=== PATIENT | female | born 1950 | race African-American/Black ===

== ENCOUNTER 2017-04-10 13:28 | Emergency (ER) | payer MEDICAID ==
[~2017-04-10] VITALS: Ht 160 cm; Wt 87.1 kg
[~2017-04-10 13:28] MED LIST: EFAVTAB5
[2017-04-10 13:46] VITALS: BP 171/81
[2017-04-10] MEDS ORDERED: ACETAMINOPHEN 325 MG TAB PO ONE ×2 (13:52→14:00)
[2017-04-10 14:23] LABS: Basophils # (auto) 0 uL; CONDITION Y; Eosinophils # (auto) 0 uL; Eosinophils % (auto) 0.2 % (0.0-7.0); Hematocrit 40.9 % (36.0-46.0); Hemoglobin 14.1 g/dL (12.2-16.2); Lymphocytes # (auto) 1.1 uL; Lymphocytes % (auto) 8.4 % (10.0-50.0); Mean Corpuscular Hgb Conc. 34.3 g/dL (32.0-36.0); Mean Corpuscular Volume 87.5 fL (80.0-100.0); Mean Platelet Volume 8.9 fL (7.4-10.4); Monocytes # (auto) 0.7 uL; Monocytes % (auto) 5.5 % (0.0-12.0); Neutrophils # (auto) 10.7 uL; Neutrophils % (auto) 85.9 % (37.0-80.0); Platelet Count (auto) 316 10^3/uL (140-450); Red Cell Distribution Width 13.4 % (11.6-16.0); White Blood Cell 12.5 10^3/uL (4.4-10.8)
[2017-04-10 14:59] LABS: Albumin 3.8 g/dL (3.4-5.0); Alkaline Phosphatase 85 U/L (45-117); Anion Gap 10 (5-15); Aspartate Aminotransferase 11 U/L (15-37); BUN/Creatinine Ratio 12.7; Bilirubin, Total 0.5 mg/dL (0.2-1.0); Blood Urea Nitrogen 7 mg/dL (7-18); Calcium 9.3 mg/dL (8.5-10.1); Carbon Dioxide 22 mmol/L (21-32); Chloride 105 mmol/L (98-107); GFR African American 143 mL/min; GFR Non-African American 118 mL/min; Glucose 134 mg/dL (74-106); Magnesium 2.2 mg/dL (1.6-2.6); Potassium 3.6 mmol/L (3.5-5.1); Sodium 137 mmol/L (136-145); Total Protein 8.1 g/dL (6.4-8.2)
[2017-04-10 15:39] LABS: Urine Bilirubin Negative (Negative); Urine Color Yellow (Yellow); Urine Glucose Normal (Normal); Urine Ketone Negative (Negative); Urine Nitrite Negative (Negative); Urine RBC 7 /hpf (0 - 4); Urine Squamous Epithelial Cell FEW /hpf (<5); Urine pH 7.5 (5.0-8.0)
[2017-04-10 15:40] LABS: Urine Blood 1+ /uL (Negative)
== END 2017-04-10 21:11 | disposition left against medical advice (07) ==
LOC: ER 13:31
DX: R10.9 Unspecified abdominal pain (principal); R11.2 Nausea with vomiting, unspecified; Z53.21 Procedure and treatment not carried out due to patient leaving prior to being seen by health care provider
CPT/HCPCS: 36415; 80053; 81001; 83690; 83735; 84484; 85025; 93005

== ENCOUNTER 2022-11-19 14:11 | Emergency (ER) | payer MEDICAID, MEDICARE ==
[~2022-11-19] VITALS: Ht 160 cm; Wt 95.0 kg
[2022-11-19 16:04] VITALS: BP 141/105
[2022-11-19] MEDS ORDERED: ACET1CAP14 PO (16:07)
[2022-11-19] MEDS ORDERED: ACETAMINOPHEN 500 MG TAB PO ONE (16:15)
== END 2022-11-19 16:22 | disposition home or self-care (01) ==
LOC: ER 14:11
DX: S46.911A Strain of unspecified muscle, fascia and tendon at shoulder and upper arm level, right arm, initial encounter (principal); F12.10 Cannabis abuse, uncomplicated; J45.909 Unspecified asthma, uncomplicated; Z88.6 Allergy status to analgesic agent; Z90.49 Acquired absence of other specified parts of digestive tract; X50.0XXA Overexertion from strenuous movement or load, initial encounter; Y93.89 Activity, other specified; Y92.89 Other specified places as the place of occurrence of the external cause; Y99.8 Other external cause status
CPT/HCPCS: 73030

== ENCOUNTER → 2023-06-05 | Outpatient (CLI) | payer OTHER ==
[~2023-06-05] MED LIST changes: +ACET1CAP14 PO
[2023-06-05 08:01] LABS: Basophils # (auto) 0 10 ^3/uL (0-0.2); Basophils % (auto) 0.7 % (0.0-2.0); Eosinophils # (auto) 0.2 10 ^3/uL (0-0.8); Eosinophils % (auto) 2.3 % (0.0-7.0); Hematocrit 42.3 % (36.0-46.0); Hemoglobin 14.4 g/dL (12.2-16.2); Lymphocytes # (auto) 1.6 10 ^3/uL (0.4-5.4); Lymphocytes % (auto) 23.2 % (10.0-50.0); Mean Corpuscular Hemoglobin 30.6 pg (28.0-32.0); Mean Corpuscular Volume 90.1 fL (80.0-100.0); Monocytes # (auto) 0.6 10 ^3/uL (0-1.3); Monocytes % (auto) 8.9 % (0.0-12.0); Neutrophils # (auto) 4.4 10 ^3/uL (1.6-8.6); Neutrophils % (auto) 64.9 % (37.0-80.0); Nucleated Red Blood Cells % 0.1 %; Red Blood Cells 4.69 10^6/uL (4.0-5.20); Red Cell Distribution Width 13.8 % (11.8-14.3); White Blood Cell 6.8 10^3/uL (4.4-10.8)
[2023-06-05 08:26] LABS: Albumin 4.5 g/dL (3.2-4.8); Alkaline Phosphatase 82 U/L (46-116); Anion Gap 4.4 (5-15); Aspartate Aminotransferase 8 U/L (13-40); BUN/Creatinine Ratio 11.3 (10.0-20.0); Blood Urea Nitrogen 8 mg/dL (9-23); Calcium 9.6 mg/dL (8.5-10.1); Carbon Dioxide 28.6 mmol/L (20-30); Chloride 107 mmol/L (98-107); Glucose 128 mg/dL (74-106); Potassium 4.1 mmol/L (3.5-5.1); Sodium 140 mmol/L (136-145)
[2023-06-05 08:27] LABS: Bilirubin, Total 0.3 mg/dL (0.2-1.0); Total Protein 7.6 g/dL (5.7-8.2)
[2023-06-05 08:32] LABS: Alanine Aminotransferase < 9 U/L (7-40)
== END | disposition home or self-care (01) ==
LOC: LAB 07:31
PROVIDERS: ATTEND Specialist
DX: B20 Human immunodeficiency virus [HIV] disease (principal); G89.4 Chronic pain syndrome; M66.211 Spontaneous rupture of extensor tendons, right shoulder; H26.223 Cataract secondary to ocular disorders (degenerative) (inflammatory), bilateral
CPT/HCPCS: 36415; 80053; 85025; 86360

== ENCOUNTER → 2023-12-12 | Outpatient (CLI) | payer OTHER ==
[2023-12-12 11:10] LABS: Basophils # (auto) 0.1 10 ^3/uL (0-0.2); Basophils % (auto) 0.8 % (0.0-2.0); Eosinophils # (auto) 0.1 10 ^3/uL (0-0.8); Eosinophils % (auto) 0.8 % (0.0-7.0); Hematocrit 39.6 % (36.0-46.0); Lymphocytes # (auto) 1.3 10 ^3/uL (0.4-5.4); Lymphocytes % (auto) 18.8 % (10.0-50.0); Mean Corpuscular Hemoglobin 29.5 pg (28.0-32.0); Mean Corpuscular Hgb Conc. 32.9 g/dL (32.0-36.0); Mean Corpuscular Volume 89.6 fL (80.0-100.0); Monocytes # (auto) 0.5 10 ^3/uL (0-1.3); Monocytes % (auto) 6.9 % (0.0-12.0); Neutrophils % (auto) 72.7 % (37.0-80.0); Red Blood Cells 4.42 10^6/uL (4.0-5.20); Red Cell Distribution Width 13.1 % (11.8-14.3); White Blood Cell 6.8 10^3/uL (4.4-10.8)
[2023-12-12 12:08] LABS: Alanine Aminotransferase 11 U/L (7-40); Albumin 4.4 g/dL (3.2-4.8); Alkaline Phosphatase 84 U/L (46-116); Anion Gap 3 (5-15); Aspartate Aminotransferase 13 U/L (13-40); BUN/Creatinine Ratio 12.5 (10.0-20.0); Blood Urea Nitrogen 7 mg/dL (9-23); Calcium 9.6 mg/dL (8.5-10.1); Carbon Dioxide 31 mmol/L (20-30); Chloride 107 mmol/L (98-107); Glucose 124 mg/dL (74-106); LDL Cholesterol 128 mg/dL (< 100); Potassium 4.2 mmol/L (3.5-5.1); Sodium 141 mmol/L (136-145); Triglycerides 87 mg/dL (< 150)
[2023-12-12 12:09] LABS: Bilirubin, Total 0.4 mg/dL (0.2-1.0); Cholesterol 182 mg/dL (< 200); HDL Cholesterol 46 mg/dL (40-59); Total Protein 7.4 g/dL (5.7-8.2)
[2023-12-13 05:07] LABS: Baso (Absolute) 0.1 x10E3/uL (0.0-0.2); Basos 1 % (Not Estab.); Eos 1 % (Not Estab.); Hematocrit 40.4 % (34.0-46.6); Hemoglobin 13.2 g/dL (11.1-15.9); Lymphs 18 % (Not Estab.); Lymphs (Absolute) 1.1 x10E3/uL (0.7-3.1); MCH 29.6 pg (26.6-33.0); MCHC 32.7 g/dL (31.5-35.7); MCV 91 fL (79-97); Monocytes 7 % (Not Estab.); Monocytes (Absolute) 0.5 x10E3/uL (0.1-0.9); Neutrophils 73 % (Not Estab.); Neutrophils (Absolute) 4.7 x10E3/uL (1.4-7.0); Platelets 368 x10E3/uL (150-450); RBC 4.46 x10E6/uL (3.77-5.28); WBC 6.4 x10E3/uL (3.4-10.8)
[2023-12-13 12:06] LABS: % CD 4 Pos Lymph 13.8 % (30.8-58.5); % CD 8 Pos Lymph 66.3 % (12.0-35.5); Absolute CD 4 Helper 152 /uL (359-1519); CD4/CD8 Ratio 0.21 (0.92-3.72)
== END | disposition home or self-care (01) ==
LOC: LAB 10:34
PROVIDERS: ATTEND Specialist
DX: I10 Essential (primary) hypertension (principal); B20 Human immunodeficiency virus [HIV] disease; G89.4 Chronic pain syndrome; H53.043 Amblyopia suspect, bilateral; J45.901 Unspecified asthma with (acute) exacerbation
CPT/HCPCS: 36415; 80053; 80061; 85025; 86360

== ENCOUNTER → 2024-03-10 | Outpatient (CLI) | payer OTHER ==
[~2024-03-10] MED LIST changes: +TRAM50TA2 PO
[2024-03-10 08:49] LABS: Basophils # (auto) 0.1 10 ^3/uL (0-0.2); Basophils % (auto) 0.9 % (0.0-2.0); Eosinophils # (auto) 0.1 10 ^3/uL (0-0.8); Eosinophils % (auto) 1.8 % (0.0-7.0); Hematocrit 40.4 % (36.0-46.0); Hemoglobin 13.9 g/dL (12.2-16.2); Lymphocytes # (auto) 1.5 10 ^3/uL (0.4-5.4); Lymphocytes % (auto) 22.2 % (10.0-50.0); Mean Corpuscular Hemoglobin 30.9 pg (28.0-32.0); Mean Corpuscular Hgb Conc. 34.4 g/dL (32.0-36.0); Mean Corpuscular Volume 89.7 fL (80.0-100.0); Monocytes # (auto) 0.6 10 ^3/uL (0-1.3); Monocytes % (auto) 9.4 % (0.0-12.0); Neutrophils # (auto) 4.4 10 ^3/uL (1.6-8.6); Neutrophils % (auto) 65.7 % (37.0-80.0); Red Blood Cells 4.51 10^6/uL (4.0-5.20); Red Cell Distribution Width 14.2 % (11.8-14.3); White Blood Cell 6.8 10^3/uL (4.4-10.8)
[2024-03-10 09:15] LABS: Alanine Aminotransferase 14 U/L (7-40); Alkaline Phosphatase 83 U/L (46-116); Anion Gap 1 (5-15); Aspartate Aminotransferase 9 U/L (13-40); BUN/Creatinine Ratio 14.8 (10.0-20.0); Blood Urea Nitrogen 9 mg/dL (9-23); Calcium 9.5 mg/dL (8.5-10.1); Carbon Dioxide 28 mmol/L (20-30); Chloride 112 mmol/L (98-107); Glucose 128 mg/dL (74-106); Sodium 141 mmol/L (136-145)
[2024-03-10 09:16] LABS: Albumin 4.5 g/dL (3.2-4.8); Bilirubin, Total 0.4 mg/dL (0.2-1.0); Total Protein 7.6 g/dL (5.7-8.2)
[2024-03-11 05:08] LABS: Baso (Absolute) 0.1 x10E3/uL (0.0-0.2); Basos 1 % (Not Estab.); Eos 2 % (Not Estab.); Eos (Absolute) 0.1 x10E3/uL (0.0-0.4); Hematocrit 42.8 % (34.0-46.6); Hemoglobin 13.9 g/dL (11.1-15.9); Lymphs 23 % (Not Estab.); Lymphs (Absolute) 1.5 x10E3/uL (0.7-3.1); MCH 29.4 pg (26.6-33.0); MCHC 32.5 g/dL (31.5-35.7); MCV 91 fL (79-97); Monocytes 10 % (Not Estab.); Monocytes (Absolute) 0.6 x10E3/uL (0.1-0.9); Neutrophils 64 % (Not Estab.); Neutrophils (Absolute) 4.3 x10E3/uL (1.4-7.0); Platelets 303 x10E3/uL (150-450); RBC 4.72 x10E6/uL (3.77-5.28); RDW 13.1 % (11.7-15.4); WBC 6.5 x10E3/uL (3.4-10.8)
[2024-03-11 12:06] LABS: % CD 8 Pos Lymph 62.7 % (12.0-35.5); Absolute CD 4 Helper 180 /uL (359-1519); CD4/CD8 Ratio 0.19 (0.92-3.72)
== END | disposition home or self-care (01) ==
LOC: LAB 08:24
PROVIDERS: ATTEND Specialist
DX: B20 Human immunodeficiency virus [HIV] disease (principal); M54.89 Other dorsalgia
CPT/HCPCS: 36415; 80053; 85025; 86360

== ENCOUNTER → 2024-08-31 | Outpatient (CLI) | payer OTHER ==
[2024-08-31 14:58] LABS: Basophils # (auto) 0.1 10 ^3/uL (0-0.2); Eosinophils # (auto) 0.1 10 ^3/uL (0-0.8); Eosinophils % (auto) 1.9 % (0.0-7.0); Hematocrit 41.4 % (36.0-46.0); Hemoglobin 14.1 g/dL (12.2-16.2); Lymphocytes # (auto) 1.8 10 ^3/uL (0.4-5.4); Lymphocytes % (auto) 24.8 % (10.0-50.0); Mean Corpuscular Hemoglobin 31.1 pg (28.0-32.0); Mean Corpuscular Hgb Conc. 34.2 g/dL (32.0-36.0); Monocytes # (auto) 0.7 10 ^3/uL (0-1.3); Monocytes % (auto) 9.8 % (0.0-12.0); Neutrophils # (auto) 4.5 10 ^3/uL (1.6-8.6); Neutrophils % (auto) 62.5 % (37.0-80.0); Platelet Count (auto) 266 10^3/uL (140-450); Red Blood Cells 4.55 10^6/uL (4.0-5.20); Red Cell Distribution Width 12.9 % (11.8-14.3); White Blood Cell 7.3 10^3/uL (4.4-10.8)
[2024-08-31 15:24] LABS: Alanine Aminotransferase 12 U/L (7-40); Albumin 4.2 g/dL (3.2-4.8); Alkaline Phosphatase 78 U/L (46-116); Anion Gap 7 (5-15); Aspartate Aminotransferase 12 U/L (13-40); BUN/Creatinine Ratio 13.8 (10.0-20.0); Blood Urea Nitrogen 9 mg/dL (9-23); Calcium 9.9 mg/dL (8.7-10.4); Carbon Dioxide 27 mmol/L (20-31); Chloride 108 mmol/L (98-107); Glucose 126 mg/dL (74-106); Sodium 142 mmol/L (136-145)
[2024-08-31 15:25] LABS: Bilirubin, Total 0.3 mg/dL (0.2-1.0); Total Protein 7.4 g/dL (5.7-8.2)
[2024-09-01 05:08] LABS: Baso (Absolute) 0.1 x10E3/uL (0.0-0.2); Basos 1 % (Not Estab.); Eos 2 % (Not Estab.); Eos (Absolute) 0.1 x10E3/uL (0.0-0.4); Hematocrit 41.3 % (34.0-46.6); Hemoglobin 13.7 g/dL (11.1-15.9); Immature Granulocytes (Abs) 0 x10E3/uL (0.0-0.1); Lymphs 25 % (Not Estab.); Lymphs (Absolute) 1.8 x10E3/uL (0.7-3.1); MCH 30.6 pg (26.6-33.0); MCHC 33.2 g/dL (31.5-35.7); MCV 92 fL (79-97); Monocytes 11 % (Not Estab.); Monocytes (Absolute) 0.8 x10E3/uL (0.1-0.9); Neutrophils 61 % (Not Estab.); Neutrophils (Absolute) 4.2 x10E3/uL (1.4-7.0); Platelets 300 x10E3/uL (150-450); RBC 4.48 x10E6/uL (3.77-5.28); WBC 6.9 x10E3/uL (3.4-10.8)
[2024-09-01 14:06] LABS: % CD 4 Pos Lymph 11.3 % (30.8-58.5); % CD 8 Pos Lymph 66.4 % (12.0-35.5); Absolute CD 4 Helper 203 /uL (359-1519); CD4/CD8 Ratio 0.17 (0.92-3.72)
== END | disposition home or self-care (01) ==
LOC: LAB 14:23
DX: B20 Human immunodeficiency virus [HIV] disease (principal); M54.89 Other dorsalgia; A52.15 Late syphilitic neuropathy
CPT/HCPCS: 36415; 80053; 85025; 86360

== ENCOUNTER 2024-12-04 08:41 | Inpatient (IN) | payer OTHER ==
[~2024-12-04] VITALS: Ht 160 cm; Wt 87.8 kg
--- NOTE | 2024-12-04 09:34 | ED.PDOC ---
History of Present Illness HPI Comments 74 year old female presents to the ED with chief complaint of generalized weakness and SOB. Patient reports that she has been experiencing generalized weakness, fatigue, and SOB with exertion for the past 2 months. Patient relays that she is normally active and now she is unable to be as active due to her SOB when exerting herself minimally. Patient states she has also had some intermittent left and right sided chest pain, however, she believes it is from a previous muscle injury that she sustained back in 2017. Patient notes she is here today due to an upcoming family trip that will require her to walk a lot. Patient denies any dizziness, headache, N/V/D, black stools, hematemesis, d ysuria, or fever. Chief Complaint: General Weakness Time Seen by MD: 09:30 Primary Care Provider: DARCI Reviewed Notes: Nurses Notes, Medications, Allergies Allergies: Coded Allergies: Codeine (Verified Allergy, Unknown, NAUSEA, 11/19/22) Home Meds Active Scripts Tramadol Hcl (Tramadol Hcl) 50 Mg Tab, 50 MG PO BID, #20 TAB Prov:NAM THOMAS 01/10/24 Acetaminophen (Tylenol) 325 Mg Cap, 325 MG PO Q4HPRN PRN, #30 CAP 0 Refills Take 1-2 caps po q4h prn for pain Prov:GEOVANNA CHILDERS 11/19/22 Reported Medications [Atripla] (Atripla) TAB No Conflict Check 06/03/13 Information Source: Patient Mode of Arrival: Ambulatory Severity: Moderate Timing: Months Duration: Since onset Prehospital treatment: None Past Medical History PAST MEDICAL HISTORY: Asthma, HIV, HTN Surgical History: Cholecystectomy 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 SITE ENGINEER 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: No 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 ENGINEER History Family History Family History: Reviewed,noncontributory to illness Social History Smoker: Non-Smoker Alcohol: Denies ETOH Use Drugs: Marijuana Lives In: Home Constitutional: reports: fatigue, weakness; denies: chills, diaphoresis, fever, malaise, sweats, others EENTM: denies: blurred vision, double vision, ear bleeding, ear discharge, ear drainage, ear pain, ear ringing, eye pain, eye redness, hearing loss, mouth pain, mouth swelling, nasal discharge, nose bleeding, nose congestion, nose pain, photophobia, tearing, throat pain, throat swelling, voice changes, others Respiratory: reports: SOB with excertion; denies: cough, hemoptysis, orthopnea, SOB at rest, shortness of breath, stridor, wheezing, others Cardiovascular: reports: chest pain; denies: dizzy spells, diaphoresis, Dyspnea on exertion, edema, irregular heart beat, left arm pain, lightheadedness, palpitations, PND, syncope, others Gastrointestinal: denies: abdomen distended, abdominal pain, blood streaked bowels, constipated, diarrhea, dysphagia, difficulty swallowing, hematemesis, melena, nausea, poor appetite, poor fluid intake, rectal bleeding, rectal pain, vomiting, others Genitourinary: denies: abnormal vagina bleeding, burning, dyspareunia, dysuria, flank pain, frequency, hematuria, incontinence, pain, , vagina discharge, urgency, others Neurological: denies: dizziness, fainting, headache, left sided numbness, left sided weakness, numbness, paresthesia, pre-existing deficit, right sided numbness, right sided weakness, seizure, speech problems, tingling, tremors, weakness, others Musculoskeletal: denies: back pain, gout, joint pain, joint swelling, muscle pain, muscle stiffness, neck pain, others Integumetry: denies: bruises, change in color, change in hair/nails, dryness, laceration, lesions, lumps, rash, wounds, others Allergic/Immunocompromised: denies: Difficulty Healing, Frequent Infections, Hi ves, Itching, others Hematologic/Lymphatic: denies: anemia, blood clots, easy bleeding, easy bruising, swollen glands, others Endocrine: denies: excessive hunger, excessive sweating, excessive thirst, excessive urination, flushing, intolerance to cold, intolerance to heat, unexplained weight gain, unexplained weight loss, others Psychiatric: denies: anxiety, bipolar disorder, depression, hopeless, panic disorder, schizophrenia, sleepless, suicidal, others All Other Systems: Reviewed and Negative Physical Exam General Appearance: No Apparent Distress, Normal HEENT: Normal ENT Inspection, PERRL/EOMI Neck: Full Range of Motion, Non-Tender, Normal, Normal Inspection Respiratory: Chest Non-Tender, Lungs Clear, No Accessory Muscle Use, No Respiratory Distress, Normal Breath Sounds Cardiovascular: No Edema, No JVD, No Murmur, No Gallop, Normal Peripheral Pulses, Regular Rate/Rhythm Breast Exam: Deferred Gastrointestinal: No Organomegaly, Non Tender, No Pulsatile Mass, Normal Bowel Sounds, Soft Genitalia: Deferred Pelvic: Deferred Rectal: Deferred Extremities: No calf tenderness, Normal capillary refill, Normal inspection, Normal range of motion, Non-tender, No pedal edema Musculoskeletal : Apperance: Normal Neurologic: Alert, cardiology teacher II-XII nml as Tested, No Motor Deficits, Normal Affect, Normal Mood, No Sensory Deficits Cerebellar Function: Normal Reflexes: Normal Skin: Dry, Normal Color, Warm Lymphatic: No Adenopathy Was a procedure done? Was a procedure done?: No Differential Dx Considerations may include: ACS, electrolyte abnormality, heart failure, infectious etiology, lung pathology X-Ray, Labs, Meds, VS Vital Signs Date Time Temp Pulse Resp B/P (MAP) Pulse Ox O2 Delivery O2 Flow Rate FiO2 12/04/24 09:07 73 12/04/24 09:04 98.4 86 20 171/79 (109) 98 Lab Test 12/04/24 11:36 12/04/24 10:34 12/04/24 10:22 Range/Units Troponin I High Sensitivity 5 5 </=34 ng/L White Blood Count 5.8 4.4-10.8 10^3/uL Red Blood Count 4.81 4.0-5.20 10^6/uL Hemoglobin 14.2 12.2-16.2 g/dL Hematocrit 43.6 36.0-46.0 % Mean Corpuscular Volume 90.7 80.0-100.0 fL Mean Corpuscular Hemoglobin 29.4 28.0-32.0 pg Mean Corpuscular Hemoglobin Concent 32.4 32.0-36.0 g/dL Red Cell Distribution Width 14.4 H 11.8-14.3 % Platelet Count 270 140-450 10^3/uL Mean Platelet Volume 8.0 6.9-10.8 fL Neutrophils (%) (Auto) 58.8 37.0-80.0 % Lymphocytes (%) (Auto) 28.2 10.0-50.0 % Monocytes (%) (Auto) 10.2 0.0-12.0 % Eosinophils (%) (Auto) 1.8 0.0-7.0 % Basophils (%) (Auto) 1.0 0.0-2.0 % Neutrophils # (Auto) 3.4 1.6-8.6 10 ^3/uL Lymphocytes # (Auto) 1.6 0.4-5.4 10 ^3/uL Monocytes # (Auto) 0.6 0-1.3 10 ^3/uL Eosinophils # (Auto) 0.1 0-0.8 10 ^3/uL Basophils # (Auto) 0.1 0-0.2 10 ^3/uL Nucleated Red Blood Cells 0.1 % Sodium Level 140 136-145 mmol/L Potassium Level 4.6 3.5-5.1 mmol/L Chloride Level 111 H 98-107 mmol/L Carbon Dioxide Level 25 20-31 mmol/L Anion Gap 4 L 5-15 Blood Urea Nitrogen 14 9-23 mg/dL Creatinine 0.60 0.550-1.02 mg/dL Glomerular Filtration Rate Calc 95 >90 mL/min BUN/Creatinine Ratio 23.3 H 10.0-20.0 Serum Glucose 114 H 74-106 mg/dL Calcium Level 9.8 8.7-10.4 mg/dL B-Type Natriuretic Peptide 23.05 0-100 pg/mL Urine Color Light-yellow Yellow Urine Clarity Clear Clear Urine pH 5.5 5.0-9.0 Urine Specific [place] 1.023 1.001-1.035 Urine Protein Negative Negative Urine Ketones Negative Negative Urine Blood 1+ H Negative /uL Urine Nitrite Negative Negative Urine Bilirubin Negative Negative Urine Urobilinogen Normal Negative mg/dL Urine Leukocyte Esterase Trace Negative /uL Urine RBC 1 0 - 4 /hpf Urine Microscopic WBC 3 0-5 /HPF Urine Squamous Epithelial Cells Few <5 /hpf Urine Bacteria Few H None Seen /hpf Urine Mucus Few None Seen Urine Glucose Normal Normal mg/dL Chest XR: FINDINGS: Lines and Tubes: None Lungs: No focal consolidation. Pleura: No effusion. No pneumothorax. Cardiomediastinal contours: Cardiomegaly. Atherosclerotic vascular calci fications of the thoracic aorta are noted. Bones: No acute osseous abnormality. IMPRESSION: No acute cardiopulmonary disease. Time of 1ST Reevaluation: 10:30 Reevaluation 1ST: Unchanged Patient Education/Counseling: Diagnosis, Treatment Family Education/Counseling: No Family Present Additional Information Previous visit documents reviewed: 01/10/24 for DDD The following tests were ordered, and results were reviewed by me: EKG, CBC, BMP, Troponin, Chest XR Additional Information was gathered from interviewing the following independent historians: None I reviewed and agreed with the following test results read by other providers: Chest XR I discussed treatment and results with medical personnel. Departure 1 Departure Time of Disposition: 12:40 (Patient with worsening dyspnea on exertion. Patient now unable to the walk more than a few steps before becoming winded. We will admit patient for further workup) Impression: Primary Impression: Shortness of breath Additional Impression: Generalized weakness Disposition: ADMITTED INPATIENT Admit to: Med Surg Condition: Serious Critical Care Note Critical Care Time?: No Stability Stability form required: No Heart Score Heart Score: Heart Score Response (Comments) Value History N/A 0 EKG N/A 0 Age N/A 0 Risk Factors N/A 0 Troponin N/A 0 Total 0 I personally scribed for KAMILLA BARRETO MD ([email or web address]) on 12/04/24 at 09:34. Electronically submitted by Jorge Benoit ([email or web address]). I personally scribed for KAMILLA BARRETO MD ([email or web address]) on 12/04/24 at 10:58. Electronically submitted by Jorge Benoit ([email or web address]). KAMILLA BARRETO MD Dec 04, 2024 09:34
--- NOTE | 2024-12-04 10:37 | DVH ---
EXAM: XY CHEST PORTABLE Indication: generalized weakness Technique: Single frontal view of the chest was obtained Comparison: None FINDINGS: Lines and Tubes: None Lungs: No focal consolidation. Pleura: No effusion. No pneumothorax. Cardiomediastinal contours: Cardiomegaly. Atherosclerotic vascular calcifications of the thoracic aor ta are noted. Bones: No acute osseous abnormality. IMPRESSION: No acute cardiopulmonary disease.
[2024-12-04 10:38] LABS: Urine Bacteria FEW /hpf (None Seen); Urine Blood 1+ /uL (Negative); Urine Clarity Clear (Clear); Urine Color Light-Yellow (Yellow); Urine Mucus FEW (None Seen); Urine Protein, UAD Negative (Negative); Urine Specific Gravity 1.023 (1.001-1.035); Urine Squamous Epithelial Cell FEW /hpf (<5); Urine Urobilinogen Normal (Negative); Urine WBC 3 /HPF (0-5); Urine pH 5.5 (5.0-9.0)
[2024-12-04 11:18] LABS: Basophils # (auto) 0.1 10 ^3/uL (0-0.2); Eosinophils # (auto) 0.1 10 ^3/uL (0-0.8); Eosinophils % (auto) 1.8 % (0.0-7.0); Hematocrit 43.6 % (36.0-46.0); Hemoglobin 14.2 g/dL (12.2-16.2); Lymphocytes # (auto) 1.6 10 ^3/uL (0.4-5.4); Lymphocytes % (auto) 28.2 % (10.0-50.0); Mean Corpuscular Hemoglobin 29.4 pg (28.0-32.0); Mean Corpuscular Hgb Conc. 32.4 g/dL (32.0-36.0); Mean Corpuscular Volume 90.7 fL (80.0-100.0); Monocytes # (auto) 0.6 10 ^3/uL (0-1.3); Monocytes % (auto) 10.2 % (0.0-12.0); Neutrophils # (auto) 3.4 10 ^3/uL (1.6-8.6); Neutrophils % (auto) 58.8 % (37.0-80.0); Nucleated Red Blood Cells % 0.1 %; Platelet Count (auto) 270 10^3/uL (140-450); Red Blood Cells 4.81 10^6/uL (4.0-5.20); Red Cell Distribution Width 14.4 % (11.8-14.3); White Blood Cell 5.8 10^3/uL (4.4-10.8)
[2024-12-04 11:30] LABS: Potassium 4.6 mmol/L (3.5-5.1); Sodium 140 mmol/L (136-145)
[2024-12-04 11:31] LABS: Anion Gap 4 (5-15); Calcium 9.8 mg/dL (8.7-10.4); Carbon Dioxide 25 mmol/L (20-31)
[2024-12-04 11:35] LABS: Chloride 111 mmol/L (98-107)
[2024-12-04 11:36] LABS: BUN/Creatinine Ratio 23.3 (10.0-20.0); Blood Urea Nitrogen 14 mg/dL (9-23)
[2024-12-04 11:43] LABS: Glucose 114 mg/dL (74-106)
[2024-12-04] MEDS: HYDROcodone-ACET 10/325MG TAB PO ONE (15:27)
[2024-12-04] MEDS: ONDANSETRON ODT 4 MG TAB PO ONE (15:30)
[2024-12-04] MEDS ORDERED: METO25TA93 PO (16:45)
[2024-12-04] MEDS ORDERED: ALBUTEROL SULF 2.5 MG/0.5ML(0.5%) NEB SOLN NEB PRN (16:45)
[2024-12-04] MEDS ORDERED: ABAC1TAB3 PO (16:45)
[2024-12-04] MEDS ORDERED: ALEN70TA74 PO (16:45)
[2024-12-04] MEDS ORDERED: METO-289 PO (16:45)
--- NOTE | 2024-12-04 17:03 | DVHHP2 ---
History of Present Illness Reason for Visit: Generalized weakness History of Present Illness AceChrystal is a 74-year-old female with past medical history of hypertension, asthma, HIV diagnosed in 2007, osteoporosis, chronic low back pain, sciatica, and cholecystectomy who presents to the ED with generalized weakness and dizziness x2 months. Daughter Zelda at the bedside states that it has progressively been getting worse. She has been getting short of breath while washing dishes or walking 20 ft. Patient states that she does not use home oxygen. Upon examination noticed that when the set decorator pina blood from the right AC with the tourniquet above the elbow the patient's middle finger had locked and stayed in position while the daughter manually and locked it. Patient reports that it has been happening for the last couple of months. She denies any recent trauma or injury to the site. Daughter had stated that the shortness of breath started to occur after an accident that occurred back in 2016. Patient does reports some numbness and tingling in her bilateral upper extremities. She denies having neuropathy. Patient reports that she has been seeing her primary care doctor but forgot to inform him of the ongoing problem she states that she saw him just last week. Patient currently denies any chest pain, abdominal pain, nausea, vomiting, fever, chills, wheezing, and diarrhea Cardiovascular: HTN Pulmonary: Asthma Infectious disease: HIV Past Medical History Osteoporosis Chronic low back pain Sciatica Past Surgical History: Cholecystectomy Family History: Cancer, DM, Other (Father with heart disease and cancer) Smoke: No ALCOHOL: occassional Drugs: Marijuana Lives: with Family Domestic Violence: Neg Review of Systems Constitutional: Yes: Weakness, Other (Bilateral upper extremity numbness and tingling with dizziness) Respiratory: SOB with excertion Allergies: Coded Allergies: NO KNOWN ALLERGIES (Unverified , 12/04/24) Medications Current Medications Medications Dose Ordered Sig/Sergio Route Start Time Stop Time Status Last Admin Dose Admin Ondansetron HCl 4 mg Q4HP PRN IV 12/04/24 16:30 Acetaminophen 650 mg Q6HP PRN PO 12/04/24 16:30 Exam Vital Signs Vital Signs Date Time Temp Pulse Resp B/P (MAP) Pulse Ox O2 Delivery O2 Flow Rate FiO2 12/04/24 15:12 72 18 96 Room Air 12/04/24 15:12 98.1 168/81 (110) 98.1 General Appearance: Alert, Oriented X3, Cooperative, No acute distress HEENT: Atraumatic, PERRLA, EOMI, Mucous membr. moist/pink Respiratory: Clear to auscultation, Normal air movement Cardiovascular: Regular rate, Normal S1, Normal S2, No murmurs Abdominal: Normal bowel sounds, Soft, No tenderness, No hepatospenomegaly, No masses Extremities: No clubbing, No cyanosis, No edema, Normal pulses, No tenderness/swelling, Other (Right middle finger locking up) Skin: No significant lesion Neuro: Normal gait, Normal speech, Strength at 5/5 X4 ext, Normal tone, Sensation intact Psych/Mental Status: Mental status NL, Mood NL Labs/Xrays Labs Test 12/04/24 16:30 12/04/24 16:11 12/04/24 11:36 12/04/24 10:34 Range/Units Troponin I High Sensitivity 5 </=34 ng/L Thyroid Stimulating Hormone (TSH) 0.97 0.55-4.78 uIU/mL White Blood Count 5.8 4.4-10.8 10^3/uL Red Blood Count 4.81 4.0-5.20 10^6/uL Hemoglobin 14.2 12.2-16.2 g/dL Hematocrit 43.6 36.0-46.0 % Mean Corpuscular Volume 90.7 80.0-100.0 fL Mean Corpuscular Hemoglobin 29.4 28.0-32.0 pg Mean Corpuscular Hemoglobin Concent 32.4 32.0-36.0 g/dL Red Cell Distribution Width 14.4 H 11.8-14.3 % Platelet Count 270 140-450 10^3/uL Mean Platelet Volume 8.0 6.9-10.8 fL Neutrophils (%) (Auto) 58.8 37.0-80.0 % Lymphocytes (%) (Auto) 28.2 10.0-50.0 % Monocytes (%) (Auto) 10.2 0.0-12.0 % Eosinophils (%) (Auto) 1.8 0.0-7.0 % Basophils (%) (Auto) 1.0 0.0-2.0 % Neutrophils # (Auto) 3.4 1.6-8.6 10 ^3/uL Lymphocytes # (Auto) 1.6 0.4-5.4 10 ^3/uL Monocytes # (Auto) 0.6 0-1.3 10 ^3/uL Eosinophils # (Auto) 0.1 0-0.8 10 ^3/uL Basophils # (Auto) 0.1 0-0.2 10 ^3/uL Nucleated Red Blood Cells 0.1 % Sodium Level 140 136-145 mmol/L Potassium Level 4.6 3.5-5.1 mmol/L Chloride Level 111 H 98-107 mmol/L Carbon Dioxide Level 25 20-31 mmol/L Anion Gap 4 L 5-15 Blood Urea Nitrogen 14 9-23 mg/dL Creatinine 0.60 0.550-1.02 mg/dL Glomerular Filtration Rate Calc 95 >90 mL/min BUN/Creatinine Ratio 23.3 H 10.0-20.0 Serum Glucose 114 H 74-106 mg/dL Calcium Level 9.8 8.7-10.4 mg/dL B-Type Natriuretic Peptide 23.05 0-100 pg/mL Vitamin D 25-Hydroxy 11.6 L 30.0-100 ng/mL Test 12/04/24 10:22 Range/Units Urine Color Light-yellow Yellow Urine Clarity Clear Clear Urine pH 5.5 5.0-9.0 Urine Specific [place] 1.023 1.001-1.035 Urine Protein Negative Negative Urine Ketones Negative Negative Urine Blood 1+ H Negative /uL Urine Nitrite Negative Negative Urine Bilirubin Negative Negative Urine Urobilinogen Normal Negative mg/dL Urine Leukocyte Esterase Trace Negative /uL Urine RBC 1 0 - 4 /hpf Urine Microscopic WBC 3 0-5 /HPF Urine Squamous Epithelial Cells Few <5 /hpf Urine Bacteria Few H None Seen /hpf Urine Mucus Few None Seen Urine Glucose Normal Normal mg/dL EXAM: XY CHEST PORTABLE Indication: generalized weakness Technique: Single frontal view of the chest was obtained Comparison: None FINDINGS: Lines and Tubes: None Lungs: No focal consolidation. Pleura: No effusion. No pneumothorax. Cardiomediastinal contours: Cardiomegaly. Atherosclerotic vascular calcifications of the thoracic aorta are noted. Bones: No acute osseous abnormality. IMPRESSION: No acute cardiopulmonary disease. Assessment/Plan Assessment/Plan Assessment Generalized weakness Marijuana use ETOH use Obesity History of hypertension History of asthma History of HIV diagnosed in 2007 History of osteoporosis History of chronic low back pain History of sciatica History of cholecystectomy Plan Admit to med surge Antiemetics Pain management Troponin negative x2 Chest x-ray noted UA noted BNP EKG Flu swab COVID swab TSH Echo Vitamin-D level Vitamin-B level A1c Carotid duplex P.r.n. albuterol treatments Home medications reconciled P.r.n. antihypertensives Diet DVT prophylaxis not indicated patient ambulating Discussed plan of care with patient, patient's daughter, and nurse Counseled patient on cessation of marijuana use Counseled patient on cessation of EtOH use Counseled patient on lifestyle modifications, diet, and exercise Plan discussed with: Patient My Orders Orders - YASH HANNA Procedure Category Date Status Time Rapid Influenza A&B LAB 12/04/24 In Process 15:49 Covid19 Antigen Rosalinda LAB 12/04/24 In Process Echo 2d Mode Cardiac US 12/04/24 Logged DOP 15:50 Vitamin B1 (Thiamine) LAB 12/04/24 In Process 15:50 Carotid Duplx W Color US 12/04/24 Logged DOP 16:18 Hemoglobin A1c LAB 12/04/24 In Process 16:18 Admit ADMIT 12/04/24 Transmitted 16:26 Allergies QUENTIN 12/04/24 In Process 16:26 Code Status CODE 12/04/24 Transmitted 16:26 Ondansetron Hcl PHA 12/04/24 In Process (Zofran) 16:30 Complete Blood Count LAB 12/05/24 Verified 04:00 Comprehensive LAB 12/05/24 Verified Metabolic Panel 04:00 Cardiac DIET 12/04/24 Transmitted Diet-2gna,Lofat,Lochol Dinner Acetaminophen Tablet PHA 12/04/24 In Process (Tylenol Tablet) 16:30 Sequential QUENTIN 12/04/24 In Process Compression Device Albuterol Medneb PHA 12/04/24 Logged (Ventolin Medneb) 16:45 Date of Service: Dec 04, 2024 Billing Provider: YASH HANNA Common Visit Codes: 68254-[id number] INP/OBS CARE (HIGH) YASH HANNA Dec 04, 2024 17:03
[2024-12-04 17:07] LABS: COVID19 ANTIGEN SOFIA FIA NEGATIVE (NEGATIVE); Rapid Influenza A Negative (Negative); Rapid Influenza B Negative (Negative)
--- NOTE | 2024-12-04 17:57 | DVH ---
Carotid Duplex Date: 12/04/2024 05:18 PM Clinical History: dizzy Comparison: None Technique: Duplex Doppler evaluation of the extracranial carotid and vertebral arteries including color Doppler and spectral/pulsed waveform analysis was performed. Findings: RIGHT SIDE: The peak systolic velocities are 100 cm/s in the distal CCA and 143 cm/s in the proximal ICA.The ICA/ CCA ratio is less than 2. The elevated velocity within the right proximal ICA appears to be from tort uous vasculature. The external carotid artery is patent with peak systolic velocity of 95 cm/s proximally. There is appropriate antegrade flow in the right vertebral artery. LEFT SIDE: The peak systolic velocities are 85 cm/s in the distal CCA and 213 cm/s in the proximal ICA.. The IC A/CCA ratio is 2.5 The external carotid artery is patent with peak systolic velocity of 81 cm/s proximally. There is appropriate antegrade flow in the left vertebral artery. IMPRESSION: 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. No hemodynamically significant stenosis involving the right internal carotid arterial system. Reference: Radiology 2003; 229:[id number]
[2024-12-04 19:59] VITALS: RESP 18; O2SAT 95
[2024-12-04 20:03] VITALS: O2SAT 95
[2024-12-04 20:44] VITALS: BP 142/64; PULSE 64; RESP 18; TEMP 98.8; O2SAT 95
[2024-12-04 21:13] VITALS: BP 164/68; PULSE 101; RESP 18; TEMP 97.9; O2SAT 99
[2024-12-04] MEDS: ACETAMINOPHEN 325 MG TAB PO PRN (22:19)
[2024-12-05] VITALS (12 sets, daily range): BP systolic 140–170; BP diastolic 59–79; PULSE 61–94; RESP 14–19; TEMP 97.5–98; O2SAT 95–98
[2024-12-05 06:44] LABS: Basophils # (auto) 0.1 10 ^3/uL (0-0.2); Basophils % (auto) 1.6 % (0.0-2.0); Eosinophils # (auto) 0.1 10 ^3/uL (0-0.8); Eosinophils % (auto) 2.6 % (0.0-7.0); Hematocrit 38.9 % (36.0-46.0); Hemoglobin 13.4 g/dL (12.2-16.2); Lymphocytes # (auto) 1.5 10 ^3/uL (0.4-5.4); Lymphocytes % (auto) 31.1 % (10.0-50.0); Mean Corpuscular Hemoglobin 30.8 pg (28.0-32.0); Mean Corpuscular Hgb Conc. 34.6 g/dL (32.0-36.0); Mean Corpuscular Volume 89.1 fL (80.0-100.0); Monocytes # (auto) 0.6 10 ^3/uL (0-1.3); Monocytes % (auto) 11.8 % (0.0-12.0); Neutrophils # (auto) 2.5 10 ^3/uL (1.6-8.6); Neutrophils % (auto) 52.9 % (37.0-80.0); Nucleated Red Blood Cells % 0.2 %; Platelet Count (auto) 252 10^3/uL (140-450); Red Blood Cells 4.36 10^6/uL (4.0-5.20); Red Cell Distribution Width 13.9 % (11.8-14.3); White Blood Cell 4.7 10^3/uL (4.4-10.8)
[2024-12-05 06:53] LABS: Alanine Aminotransferase 10 U/L (7-40); Albumin 4.2 g/dL (3.2-4.8); Alkaline Phosphatase 70 U/L (46-116); Anion Gap 4 (5-15); Blood Urea Nitrogen 12 mg/dL (9-23); Calcium 9.4 mg/dL (8.7-10.4); Carbon Dioxide 26 mmol/L (20-31); Potassium 4.2 mmol/L (3.5-5.1); Sodium 141 mmol/L (136-145); Total Protein 7.1 g/dL (5.7-8.2)
[2024-12-05 06:54] LABS: Bilirubin, Total 0.5 mg/dL (0.2-1.0)
[2024-12-05 06:59] LABS: Aspartate Aminotransferase 11 U/L (13-40); Chloride 111 mmol/L (98-107); Glucose 124 mg/dL (74-106)
[2024-12-05] MEDS: HYDROcodone-ACET 5/325MG TAB PO PRN (08:17)
[2024-12-05] MEDS: ONDANSETRON HCL 4 MG/2 ML VIAL IV PRN (08:21)
[2024-12-05] MEDS: hydrALAZINE HCL 20 MG/ML VL IV PRN (09:03)
--- NOTE | 2024-12-05 13:25 | DVHPN2 ---
Subjective The patient seen and examined at bedside. Complain of weakness Reviewed: Care Plan, H&P, Labs, Medications, Previous Orders, Radiology Changes from previous H/P or p: No Changes Respiratory: SOB with excertion Objective Vitals Vital Signs Date Time Temp Pulse Resp B/P (MAP) Pulse Ox O2 Delivery O2 Flow Rate FiO2 12/05/24 11:42 97 Room Air* 0 21 12/05/24 09:03 174/77 12/05/24 09:00 98.0 64 14 98.0 Intake/Output Intake and Output 12/05/24 07:00 Intake Total 350 ml Balance 350 ml Intake Oral 350 ml # Voids 2 General Appearance: Alert, No acute distress HEENT: Atraumatic, PERRLA, EOMI, Mucous membr. moist/pink Neck: Supple Cardiovascular: Regular rate, Normal S1, Normal S2, No murmurs, Gallops, Rubs Abdomen: Normal bowel sounds, Soft Extremities: Normal pulses Neuro: Cranial nerves 3-12 NL Psych/Mental Status: Mental status NL Medications Current Medications Medications Dose Ordered Sig/Sergio Route Start Time Stop Time Status Last Admin Dose Admin Ondansetron HCl 4 mg Q4HP PRN IV 12/04/24 16:30 12/05/24 08:21 4 MG Acetaminophen 650 mg Q6HP PRN PO 12/04/24 16:30 12/04/24 22:19 650 MG Albuterol 2.5 mg Q4HPRN PRN NEB 12/04/24 16:45 Hydralazine HCl 10 mg Q6HP PRN IV 12/04/24 17:15 12/05/24 09:03 10 MG Acetaminophen/ Hydrocodone Bitart 1 tab Q6HPRN PRN PO 12/05/24 04:30 12/05/24 08:17 1 TAB Laboratory Results Laboratory Tests 12/05/24 06:14 Chemistry Test 12/05/24 06:14 Albumin 4.2 g/dL (3.2-4.8) Calcium Level 9.4 mg/dL (8.7-10.4) Total Protein 7.1 g/dL (5.7-8.2) LFT Test 12/05/24 06:14 Alanine Aminotransferase (ALT) 10 U/L (7-40) Alkaline Phosphatase 70 U/L (46-116) Aspartate Amino Transferase (AST) 11 U/L (13-40) L Total Bilirubin 0.5 mg/dL (0.2-1.0) Urinalysis Test 12/04/24 10:22 Urine Color Light-yellow (Yellow) Urine Clarity Clear (Clear) Urine pH 5.5 (5.0-9.0) Urine Specific [place] 1.023 (1.001-1.035) Urine Protein Negative (Negative) Urine Ketones Negative (Negative) Urine Blood 1+ /uL (Negative) H Urine Nitrite Negative (Negative) Urine Bilirubin Negative (Negative) Urine Urobilinogen Normal mg/dL (Negative) Urine Leukocyte Esterase Trace /uL (Negative) Urine RBC 1 /hpf (0 - 4) Urine Microscopic WBC 3 /HPF (0-5) Urine Squamous Epithelial Cells Few /hpf (<5) Urine Bacteria Few /hpf (None Seen) H Urine Mucus Few (None Seen) Urine Glucose Normal mg/dL (Normal) Labs and/or images reviewed: Labs reviewed by me Assessment/Plan Assessment/Plan Generalized weakness Marijuana use ETOH use Obesity Hypertension Asthma HIV diagnosed in 2007 Osteoporosis Chronic low back pain History of sciatica History of cholecystectomy Continuing current management. Patient is still remained weak especially on the left side. I am going to order a CT scan of the head to rule out acute CVA. I discussed with the patient regardingto HIV. The patient take medication and according to her two months ago she checked with the infectious disease doctor, the CD 4 count was low and viral load is undetectable according to the patient. I am going to get the PT to get the patient out of bed and ambulate. Advised to stop drinking and stop using marijuana This medical document was created using an electronic medical record system with M[employer] direct computerized dictation system. Although this document has been carefully reviewed, there may still be some phonetic and typographical errors. These areas are purely typographical due to imperfections of the software programs, and do not reflect any compromise in the patient's medical care. Plan discussed with: Patient, Daughter Date of Service: Dec 05, 2024 Billing Provider: TERRY ARIAS MD Common Visit Codes: [id number] INP/OBS CARE(HIGH) TERRY ARIAS MD Dec 05, 2024 13:25
[2024-12-05] MEDS ORDERED: ALENDRONATE SODIUM 10 MG TAB PO SCH (15:00)
--- NOTE | 2024-12-05 15:01 | DVH ---
EXAM: CT HEAD WITHOUT CONTRAST INDICATION: GEN WEAKNESS TECHNIQUE: CT of the head without intravenous contrast. Coronal and sagittal reformatted images are s ubmitted. Radiation Dose : 1. Head: CT Dose: CTDI volume is 49.7 mGy. Dose-length product is 795.4 mGy*cm The dose indicators for CT are the volume Computed Tomography (CT) Dose Index (CTDIvol) and the Dose Length Product (DLP), and are measured in units of mGy and mGy-cm, respectively. These indicators are not patient dose, but values generated from the CT scanner acquisition factors. The report includes radiation exposure data for exposures received during this examination. All CT scans at this medical facility are performed using dose modulation techniques as appropriate to a performed exam including the following: Automated exposure control was utilized; adjustment of the MA and/or KV according to patient size; and use of iterative reconstruction technique. COMPARISON: None FINDINGS: There is no evidence of acute intracranial hemorrhage, extra-axial collection, mass effect, midline s hift, herniation or hydrocephalus. The ventricles, sulci and cisterns are age appropriate. The arenas-white differentiation is intact. The visualized paranasal sinuses and mastoid air cells are clear. No depressed calvarial fracture. The surrounding soft tissues are unremarkable. IMPRESSION: 1. No evidence of acute intracranial abnormality. HS:Y
--- NOTE | 2024-12-05 15:15 | DVHSR ---
APPROVED REPORT EXAM: Two-dimensional and M-mode echocardiogram with Doppler and color Doppler. Blood Pressure: 147/65 mmHg INDICATION dizzy RISK FACTORS Obesity: Height: 5'3, Weight: 197 DIMENSIONS LVDd5.0 (3.8-5.7cm)LA (2D)4.2 (1.9-4.0cm)Aortic Root3.0 (2.0-3.7cm) LVDs3.2 (2.5-4.0cm)LA (MM) (1.9-4.0cm)Aortic Cusp Exc1.7 (1.5-2.0cm) EF (%) 67.0 (55-70%)Rt. Atrium3.2 (1.9-4.0cm)Asc. Aorta3.2 cm IVSd1.3 (0.7-1.1cm)RV (D)3.6 (1.8-2.4cm) PWd1.2 (0.7-1.1cm) Mitral Valve MitralMitral Stenosis E wave0.94m/sMV Mean GR.mmHg A wave0.91m/sMV Peak GR.99mmHg E/A ratio1.02D MVAcm2 DECEL [id number] 1/2 Timems Aortic Valve Aortic ValveAortic Stenosis V11.49m/Driss Mean GR.11mmHg V22.19m/Driss Peak GR.19mmHg LVOT Diameter2.0 (1.8-2.4cm)Doppler AVA2.14cm2 Pulmonic Valve V21.13m/s Tricuspid Valve TR Velocity2.53m/s [id number] Conclusion lvef 65% mild LVH septal hypertrophy aortic stenosis mild
[2024-12-05] MEDS: traMADol HCL 50 MG TAB PO SCH (22:00)
[2024-12-06] VITALS (8 sets, daily range): BP systolic 129–173; BP diastolic 63–80; PULSE 59–77; RESP 15–18; TEMP 97.7–98.1; O2SAT 92–100
--- NOTE | 2024-12-06 04:34 | ECG ---
[facility] Test Date: 2024-12-04 Test Time: 09:07:11 Pat Name: CONCEPCION BENSON Department: er Room: 0289 B Gender: F Director Of Email Marketing: obinna : 1950 Requested By: EMERGENCY EMERGENCY Order Number: [id number] Reading MD: Lukasz Sarmiento Measurements Intervals [place] Rate: 73 P: 0 NV: 148 QRS: 74 QRSD: 127 T: 78 QT: 395 QTc: 436 Interpretive Statements Sinus rhythm Right atrial enlargement Nonspecific intraventricular conduction delay Probable lateral infarct, old Minimal ST elevation, inferior leads Artifact in lead(s) I,II,III,aVR,aVL,aVF,V1,V2,V3,V4,V5,V6 Electronically Signed On 12-09-2024 16:33:31 PDT by Lukasz Sarmiento Please click the below link to view image of tracing.
[2024-12-06] MEDS: METOPROLOL SUCCINATE XL 50 MG TAB PO SCH (08:24)
[2024-12-06] MEDS: ABACAVIR DOLUTEGRAVIR LAMIVUDI PO SCH (08:30)
--- NOTE | 2024-12-06 13:11 | DVHPN2 ---
Subjective The patient is seen examined at bedside. Still remained weak. Reviewed: Care Plan, H&P, Labs, Medications, Previous Orders, Radiology Changes from previous H/P or p: No Changes Respiratory: SOB with excertion Objective Vitals Vital Signs Date Time Temp Pulse Resp B/P (MAP) Pulse Ox O2 Delivery O2 Flow Rate FiO2 12/06/24 09:00 98.1 77 17 173/77 (109) 97 98.1 12/06/24 08:10 Room Air* 0 21 Intake/Output Intake and Output 12/06/24 07:00 Intake Total 1995 ml Output Total 800 ml Balance 1195 ml Intake Oral 1995 ml Output Urine Total 800 ml # Voids 1 General Appearance: Alert, Oriented X3, Cooperative, No acute distress HEENT: Atraumatic, PERRLA, EOMI, Mucous membr. moist/pink Neck: Supple Lungs: Clear to auscultation, Normal air movement Cardiovascular: Regular rate, Normal S1, Normal S2, No murmurs, Gallops, Rubs Abdomen: Normal bowel sounds, Soft, No tenderness Neuro: Cranial nerves 3-12 NL Psych/Mental Status: Mental status NL Medications Current Medications Medications Dose Ordered Sig/Sergio Route Start Time Stop Time Status Last Admin Dose Admin Ondansetron HCl 4 mg Q4HP PRN IV 12/04/24 16:30 12/06/24 08:25 4 MG Acetaminophen 650 mg Q6HP PRN PO 12/04/24 16:30 12/04/24 22:19 650 MG Albuterol 2.5 mg Q4HPRN PRN NEB 12/04/24 16:45 Hydralazine HCl 10 mg Q6HP PRN IV 12/04/24 17:15 12/05/24 17:05 10 MG Acetaminophen/ Hydrocodone Bitart 1 tab Q6HPRN PRN PO 12/05/24 04:30 12/05/24 16:00 1 TAB Metoprolol Succinate 50 mg DAILY PO 12/06/24 10:00 12/06/24 08:24 50 MG Tramadol HCl 50 mg BID PO 12/05/24 22:00 12/06/24 08:23 50 MG Patient Own Medication 1 tab DAILY PO 12/06/24 10:00 Alendronate Sodium 70 mg QWEEKLY PO 12/05/24 15:00 Laboratory Results Laboratory Tests 12/05/24 06:14 Urinalysis Test 12/04/24 10:22 Urine Color Light-yellow (Yellow) Urine Clarity Clear (Clear) Urine pH 5.5 (5.0-9.0) Urine Specific [place] 1.023 (1.001-1.035) Urine Protein Negative (Negative) Urine Ketones Negative (Negative) Urine Blood 1+ /uL (Negative) H Urine Nitrite Negative (Negative) Urine Bilirubin Negative (Negative) Urine Urobilinogen Normal mg/dL (Negative) Urine Leukocyte Esterase Trace /uL (Negative) Urine RBC 1 /hpf (0 - 4) Urine Microscopic WBC 3 /HPF (0-5) Urine Squamous Epithelial Cells Few /hpf (<5) Urine Bacteria Few /hpf (None Seen) H Urine Mucus Few (None Seen) Urine Glucose Normal mg/dL (Normal) Labs and/or images reviewed: Labs reviewed by me Assessment/Plan Assessment/Plan Generalized weakness Marijuana use ETOH use Obesity Hypertension Asthma HIV diagnosed in 2007 Osteoporosis Chronic low back pain History of sciatica History of cholecystectomy Continuing current management. Patient is still remained weak especially on the left side. I am going to order a CT scan of the head to rule out acute CVA. I discussed with the patient regardingto HIV. The patient take medication and according to her two months ago she checked with the infectious disease doctor, the CD 4 count was low and viral load is undetectable according to the patient. I am going to get the PT to get the patient out of bed and ambulate. Advised to stop drinking and stop using marijuana. I am going to order a vitamin B12 and folic acid level since the patient has history of alcohol use since two continuing to use alcohol in patient become weak. Restart home med including Toprol and Ultram This medical document was created using an electronic medical record system with [employer] direct computerized dictation system. Although this document has been carefully reviewed, there may still be some phonetic and typographical errors. These areas are purely typographical due to imperfections of the software programs, and do not reflect any compromise in the patient's medical care. Plan discussed with: Patient My Orders Orders - TERRY ARIAS MD Procedure Category Date Status Time Metoprolol Xl PHA 12/06/24 In Process Succinate (Toprol Xl) 10:00 Tramadol Hcl (Ultram) PHA 12/05/24 In Process 22:00 (NF) PHA 12/06/24 In Process [id number] 10:00 Alendronate Sodium PHA 12/05/24 In Process (Fosamax) 15:[address] 12/05/24 Resulted 14:10 Date of Service: Dec 06, 2024 Billing Provider: TERRY ARIAS MD Common Visit Codes: [id number] INP/OBS CARE(HIGH) TERRY ARIAS MD Dec 06, 2024 13:11
[2024-12-07] VITALS (10 sets, daily range): BP systolic 117–178; BP diastolic 63–80; PULSE 51–75; RESP 16–21; TEMP 97.9–98.4; O2SAT 93–98
--- NOTE | 2024-12-07 11:17 | DVHPN2 ---
Subjective Complaining of dizziness Reviewed: Care Plan, H&P, Labs, Medications, Previous Orders, Radiology Changes from previous H/P or p: Changes Objective Vitals Vital Signs Date Time Temp Pulse Resp B/P (MAP) Pulse Ox O2 Delivery O2 Flow Rate FiO2 12/07/24 09:12 67 184/76 12/07/24 09:00 98.0 20 98 98.0 12/07/24 06:54 Room Air* 0 21 Intake/Output Intake and Output 12/07/24 07:00 Intake Total 1150 ml Balance 1150 ml Intake Oral 1150 ml # Voids 8 General Appearance: Alert, Oriented X3, Cooperative, No acute distress HEENT: Atraumatic Lungs: Clear to auscultation, Normal air movement Cardiovascular: Regular rate, Normal S1, Normal S2 Abdomen: Normal bowel sounds, Soft, No tenderness Neuro: Normal speech, Cranial nerves 3-12 NL Psych/Mental Status: Mental status NL, Mood NL Medications Current Medications Medications Dose Ordered Sig/Sergio Route Start Time Stop Time Status Last Admin Dose Admin Ondansetron HCl 4 mg Q4HP PRN IV 12/04/24 16:30 12/06/24 08:25 4 MG Acetaminophen 650 mg Q6HP PRN PO 12/04/24 16:30 12/06/24 13:54 650 MG Albuterol 2.5 mg Q4HPRN PRN NEB 12/04/24 16:45 Hydralazine HCl 10 mg Q6HP PRN IV 12/04/24 17:15 12/07/24 09:11 10 MG Acetaminophen/ Hydrocodone Bitart 1 tab Q6HPRN PRN PO 12/05/24 04:30 12/06/24 20:16 1 TAB Tramadol HCl 50 mg BID PO 12/05/24 22:00 12/07/24 09:11 50 MG Patient Own Medication 1 tab DAILY PO 12/06/24 10:00 Alendronate Sodium 70 mg QWEEKLY PO 12/05/24 15:00 Metoprolol Succinate 100 mg DAILY PO 12/08/24 10:00 UNV Lisinopril 40 mg DAILY PO 12/08/24 10:00 UNV Laboratory Results Laboratory Tests 12/05/24 06:14 Urinalysis Test 12/04/24 10:22 Urine Color Light-yellow (Yellow) Urine Clarity Clear (Clear) Urine pH 5.5 (5.0-9.0) Urine Specific [place] 1.023 (1.001-1.035) Urine Protein Negative (Negative) Urine Ketones Negative (Negative) Urine Blood 1+ /uL (Negative) H Urine Nitrite Negative (Negative) Urine Bilirubin Negative (Negative) Urine Urobilinogen Normal mg/dL (Negative) Urine Leukocyte Esterase Trace /uL (Negative) Urine RBC 1 /hpf (0 - 4) Urine Microscopic WBC 3 /HPF (0-5) Urine Squamous Epithelial Cells Few /hpf (<5) Urine Bacteria Few /hpf (None Seen) H Urine Mucus Few (None Seen) Urine Glucose Normal mg/dL (Normal) Labs and/or images reviewed: Labs reviewed by me, Image(s) reviewed by me Assessment/Plan Assessment/Plan Covering: #Suspected TIA; after reviewing the medical records, the patient was complaining of left-sided weakness that resolved; now complaining of dizziness; reviewed echocardiogram, carotid duplex, head CT without contrast; to start on aspirin and statin; ordered brain MRI without contrast; physical therapy and Senior Accounting Analyst consulted for evaluation discharge planning; continue monitoring #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; to start on aspirin and statin; needs to follow up with vascular surgery as outpatient; continue monitoring #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; reviewed echocardiogram; adjusted antihypertensive medications; continue monitoring #Marijuana use disorder; counseled on cessation for 17 minutes; continue monitoring #HIV; continue home medication; needs to follow up with Infectious Disease as outpatient; continue monitoring #Obesity; counseled the patient on the importance of adopting healthy lifestyle with diet and exercise in order to lose weight; continue monitoring #Osteoporosis with elevated alkaline phosphatase; continue alendronate; fall precautions; continue monitoring Goals of care discussed with the patient for 20 minutes; full code Late Entry. This medical document was created using an electronic medical record system with computerized dictation system. Although this document has been carefully reviewed, there might still be some phonetic and typographical errors. These areas are purely typographical due to imperfections of the software programs, and do not reflect any compromise in the patient's medical care. Plan discussed with: Patient, Other (Nurse) My Orders Orders - YUSUF CLARKE MD Procedure Category Date Status Time Complete Blood Count LAB 12/08/24 Verified 04:00 Comprehensive LAB 12/08/24 Verified Metabolic Panel 04:00 Metoprolol Xl PHA 12/08/24 Logged Succinate (Toprol Xl) 10:00 Lisinopril Tablet PHA 12/07/24 Logged (Zestril Tablet) 11:15 Lisinopril Tablet PHA 12/08/24 Logged (Zestril Tablet) 10:00 Echo 2d Mode Cardiac US 12/07/24 Verified DOP 11:16 Date of Service: Dec 07, 2024 Billing Provider: YUSUF CLARKE MD Common Visit Codes: [id number] INP/OBS CARE(HIGH) Secondary Visit Codes: [id number] CHNG SMOKING >10MIN (Counseled on marijuana use cessation for 17 minutes), 69933-[place] CARE PLAN 30 MINUTES (20 minutes) YUSUF CLARKE MD Dec 07, 2024 11:17
[2024-12-07] MEDS: LISINOPRIL 20 MG TAB PO ONE (12:36)
[2024-12-08] VITALS (7 sets, daily range): BP systolic 105–121; BP diastolic 56–71; PULSE 60–67; RESP 17–20; TEMP 36.6; O2SAT 95–98
[2024-12-08 07:29] LABS: Basophils # (auto) 0 10 ^3/uL (0-0.2); Basophils % (auto) 0.9 % (0.0-2.0); Eosinophils # (auto) 0.1 10 ^3/uL (0-0.8); Eosinophils % (auto) 1.9 % (0.0-7.0); Hematocrit 43.6 % (36.0-46.0); Hemoglobin 14.5 g/dL (12.2-16.2); Lymphocytes # (auto) 1.8 10 ^3/uL (0.4-5.4); Lymphocytes % (auto) 32.5 % (10.0-50.0); Mean Corpuscular Hemoglobin 29.6 pg (28.0-32.0); Mean Corpuscular Hgb Conc. 33.3 g/dL (32.0-36.0); Monocytes # (auto) 0.6 10 ^3/uL (0-1.3); Monocytes % (auto) 11.3 % (0.0-12.0); Neutrophils # (auto) 2.9 10 ^3/uL (1.6-8.6); Neutrophils % (auto) 53.4 % (37.0-80.0); Nucleated Red Blood Cells % 0.1 %; Platelet Count (auto) 296 10^3/uL (140-450); Red Cell Distribution Width 14.3 % (11.8-14.3); White Blood Cell 5.5 10^3/uL (4.4-10.8)
[2024-12-08 07:47] LABS: Folate (Folic Acid) 13.78 ng/mL (>5.38)
[2024-12-08 07:54] LABS: Alanine Aminotransferase 13 U/L (7-40); Albumin 4.5 g/dL (3.2-4.8); Alkaline Phosphatase 73 U/L (46-116); Anion Gap 9 (5-15); BUN/Creatinine Ratio 22.2 (10.0-20.0); Bilirubin, Total 0.6 mg/dL (0.2-1.0); Blood Urea Nitrogen 16 mg/dL (9-23); Carbon Dioxide 25 mmol/L (20-31); Chloride 104 mmol/L (98-107); Potassium 3.7 mmol/L (3.5-5.1); Sodium 138 mmol/L (136-145); Total Protein 7.8 g/dL (5.7-8.2)
[2024-12-08 07:56] LABS: Aspartate Aminotransferase 13 U/L (13-40); Glucose 110 mg/dL (74-106)
[2024-12-08] MEDS: METOPROLOL SUCCINATE XL 50 MG TAB PO SCH (09:26)
[2024-12-08] MEDS: LISINOPRIL 20 MG TAB PO SCH (09:35)
[2024-12-08] MEDS: LORazepam 2MG/ML-1ML VIAL IV ONE (10:36)
[2024-12-08] MEDS: ERGOCALCIFEROL 50,000 UNIT(1.25MG) CAP PO SCH (11:11)
--- NOTE | 2024-12-08 11:31 | DVH ---
PROCEDURE: MRI BRAIN HEAD WO CONTRAST INDICATION: Suspected TIA. Thank You! EXAM DATE: 12/08/2024 10:41 AM COMPARISON: None TECHNIQUE: MRI of the brain without intravenous contrast. FINDINGS: Diffusion weighted images of the brain demonstrate no evidence of acute infarction. There is no evidence of acute intracranial hemorrhage, extra-axial collection, mass effect, midline s hift, herniation or hydrocephalus. The ventricles, sulci and cisterns appear age appropriate. Unag-ci-wpsuimdh changes of chronic microvascular ischemic disease. There are no signal abnormalities on the susceptibility weighted sequences. The major vascular flow voids are present. The visualized paranasal sinuses and mastoid air cells are clear. The surrounding soft tissues and o sseous structures are unremarkable. IMPRESSION: 1. No evidence of acute infarction, intracranial hemorrhage, mass effect or hydrocephalus. Mild-to-mo derate changes of chronic microvascular ischemic disease. HS:Y
[2024-12-08] MEDS ORDERED: LISI20TA56 PO (12:31)
[2024-12-08] MEDS ORDERED: ERGO1CAP23 PO (12:31)
--- NOTE | 2024-12-08 16:36 | DVHDSRES ---
Discharge Summary Date of Admission Resident Creating Document: ABBY YBARRA RESIDENT Dec 04, 2024 at 16:26 Date of Discharge: Dec 08, 2024 Admitting Diagnosis Generalized weakness Labs/Diagnostic Data: Laboratory Results Test 12/08/24 05:02 12/04/24 16:30 12/04/24 16:11 12/04/24 11:36 White Blood Count 5.5 10^3/uL (4.4-10.8) Red Blood Count 4.90 10^6/uL (4.0-5.20) Hemoglobin 14.5 g/dL (12.2-16.2) Hematocrit 43.6 % (36.0-46.0) Mean Corpuscular Volume 89.0 fL (80.0-100.0) Mean Corpuscular Hemoglobin 29.6 pg (28.0-32.0) Mean Corpuscular Hemoglobin Concent 33.3 g/dL (32.0-36.0) Red Cell Distribution Width 14.3 % (11.8-14.3) Platelet Count 296 10^3/uL (140-450) Mean Platelet Volume 8.6 fL (6.9-10.8) Neutrophils (%) (Auto) 53.4 % (37.0-80.0) Lymphocytes (%) (Auto) 32.5 % (10.0-50.0) Monocytes (%) (Auto) 11.3 % (0.0-12.0) Eosinophils (%) (Auto) 1.9 % (0.0-7.0) Basophils (%) (Auto) 0.9 % (0.0-2.0) Neutrophils # (Auto) 2.9 10 ^3/uL (1.6-8.6) Lymphocytes # (Auto) 1.8 10 ^3/uL (0.4-5.4) Monocytes # (Auto) 0.6 10 ^3/uL (0-1.3) Eosinophils # (Auto) 0.1 10 ^3/uL (0-0.8) Basophils # (Auto) 0 10 ^3/uL (0-0.2) Nucleated Red Blood Cells 0.1 % Sodium Level 138 mmol/L (136-145) Potassium Level 3.7 mmol/L (3.5-5.1) Chloride Level 104 mmol/L (98-107) Carbon Dioxide Level 25 mmol/L (20-31) Anion Gap 9 (5-15) Blood Urea Nitrogen 16 mg/dL (9-23) Creatinine 0.72 mg/dL (0.550-1.02) Glomerular Filtration Rate Calc 89 mL/min (>90) BUN/Creatinine Ratio 22.2 (10.0-20.0) Serum Glucose 110 mg/dL (74-106) Calcium Level 10.0 mg/dL (8.7-10.4) Total Bilirubin 0.6 mg/dL (0.2-1.0) Aspartate Amino Transferase (AST) 13 U/L (13-40) Alanine Aminotransferase (ALT) 13 U/L (7-40) Alkaline Phosphatase 73 U/L (46-116) Total Protein 7.8 g/dL (5.7-8.2) Albumin 4.5 g/dL (3.2-4.8) Vitamin B12 Level 519 pg/mL (211-911) Folic Acid 13.78 ng/mL (>5.38) Influenza Type A Antigen Negative (Negative) Influenza Type B Antigen Negative (Negative) SARS-CoV-2 Antigen (Rapid) Negative (NEGATIVE) Troponin I High Sensitivity 5 ng/L (</=34) Thyroid Stimulating Hormone (TSH) 0.97 uIU/mL (0.55-4.78) Test 12/04/24 10:34 12/04/24 10:22 Hemoglobin A1c 5.6 % A1C (<5.7) B-Type Natriuretic Peptide 23.05 pg/mL (0-100) Vitamin D 25-Hydroxy 11.6 ng/mL (30.0-100) Urine Color Light-yellow (Yellow) Urine Clarity Clear (Clear) Urine pH 5.5 (5.0-9.0) Urine Specific [place] 1.023 (1.001-1.035) Urine Protein Negative (Negative) Urine Ketones Negative (Negative) Urine Blood 1+ /uL (Negative) Urine Nitrite Negative (Negative) Urine Bilirubin Negative (Negative) Urine Urobilinogen Normal mg/dL (Negative) Urine Leukocyte Esterase Trace /uL (Negative) Urine RBC 1 /hpf (0 - 4) Urine Microscopic WBC 3 /HPF (0-5) Urine Squamous Epithelial Cells Few /hpf (<5) Urine Bacteria Few /hpf (None Seen) Urine Mucus Few (None Seen) Urine Glucose Normal mg/dL (Normal) Other Laboratory Tests 12/08/24 05:02 Brief Hx & Hospital Course: This is a 74-year-old female who presents to the ED with generalized weakness and dizziness x2 months. PMH: HTN, Asthma, HIV, Osteoporosis, Chronic low back pain, Sciatica Past Surgical History: Cholecystectomy Family History: Cancer, DM, Other (Father with heart disease and cancer) Social history: Smoke: No. ALCOHOL: occassional. Drugs: Marijuana. Lives: w ith Family She has been getting short of breath while washing dishes or walking 20 ft. Patient states that she does not use home oxygen. Upon examination noticed that when the manual winder pina blood from the right AC with the tourniquet above the elbow the patient's middle finger had locked and stayed in position while the daughter manually and locked it. Patient reports that it has been happening for the last couple of months. She denies any recent trauma or injury to the site. Daughter had stated that the shortness of breath started to occur after an accident that occurred back in 2017. Patient does reports some numbness and tingling in her bilateral upper extremities. She denies having neuropathy. Patient reports that she has been seeing her primary care doctor but forgot to inform him of the ongoing problem she states that she saw him just last week. Patient currently denies any chest pain, abdominal pain, nausea, vomiting, fever, chills, wheezing, and diarrhea On my assessment, patient stated that she has been experiencing dizziness, right-sided weakness, right-sided pain, for many months, it was fluctuating, she denies any numbness, slurred speech, headaches, visual changes, chest pain, shortness of breath, abdominal pain, lightheadedness. Patient states feeling better than on admission, head CT was unremarkable, a carotid Doppler revealed left carotid artery stenosis between 50-69%, a brain MRI was unremarkable. Blood work reveal low vitamin-D, patient had an adjustment on her blood pressure medications because her blood pressure was up to 170s. She was also assessed by Physical therapy which recommended a front wheel walker. General: Awake, alert, comfortable appearing, in no acute distress. HEENT: Head is normocephalic and atraumatic. Pupils are equal, round, and reactive to light. Extraocular muscles are intact. No nasal discharge. No facial trauma. Intraoral exam shows moist mucous membranes with no tonsillar enlargement or exudate. Neck: Supple with no cervical lymphadenopathy No meningismus. No goiter. Heart: Regular rate without murmur, rub, or gallop. Lungs: Equal breath sounds bilaterally with no wheezing, rales, or rhonchi. There is no chest wall tenderness or instability. Abdomen: No external sign of injury. Bowel sounds are present. Abdomen is soft, nontender. No rebound, no guarding, no rigidity. There are no palpable masses. There is no flank pain on exam. Extremities: Strong peripheral pulses. There is no clubbing, no cyanosis, and no edema. Skin: No rash. Neurologic: Cranial nerves II-XII intact without motor, sensory, or cerebellar deficit, no asterixis. We will discharge patient home and continue home medications as prescribed, she will follow with her PCP Dr. Espitia, within 1-2 weeks, we will also recommended her to follow with stone spreader operator due to her carotid artery stenosis, she will continue taking aspirin and Lipitor, she will also continue taking metoprolol 50 mg p.o. q.d., lisinopril 40 mg p.o. q.d., patient was also recommended to follow with an orthopedic surgeon given her likely trigger finger on the right hand middle finger. Patient was also recommended to follow with PCP for likely cervical radiculopathy causing her right-sided symptoms. Patient verbalized understanding and agree with DC plan, we spent over 30 minute explaining the plan. Case was discussed with Dr. Camp Operations or Procedures [place] [address] Ph: [phone] DIAGNOSTIC IMAGING Diagnostic Imaging Report : [id number] Signed PATIENT: CONCEPCION BENSONCCT: [id number] UNIT: [id number] : 1950 LOC: [facility] ROOM / BED: [address] [place] [address] AGE / SEX: 74 / F ADM STATUS: ADM IN SERVICE 1550 ORDERING PHYSICIAN: YASH HANNA PROCEDURE(s): ECIDC - ECHO 2D MODE CARDIAC DOP REASON: dizzy ORDER NUMBER(s): [id number], ACCESSION NUMBER(s): [id number] APPROVED REPORT EXAM: Two-dimensional and M-mode echocardiogram with Doppler and color Doppler. Blood Pressure: 147/65 mmHg INDICATION dizzy RISK FACTORS Obesity: Height: 5'3, Weight: 197 DIMENSIONS LVDd 5.0 (3.8-5.7cm) LA (2D) 4.2 (1.9-4.0cm) Aortic Root 3.0 (2.0- 3.7cm) LVDs 3.2 (2.5-4.0cm) LA (MM) (1.9-4.0cm) Aortic Cusp Exc 1.7 (1.5- 2.0cm) EF (%) 67.0 (55-70%) Rt. Atrium 3.2 (1.9-4.0cm) Asc. Aorta 3.2 cm IVSd 1.3 (0.7-1.1cm) RV (D) 3.6 (1.8-2.4cm) PWd 1.2 (0.7-1.1cm) Mitral Valve Mitral Mitral Stenosis E wave 0.94m/s MV Mean GR. mmHg A wave 0.91m/s MV Peak GR. 99mmHg E/A ratio 1.0 2D MVA cm2 DECEL Time 242ms PRESS 1/2 Time ms Aortic Valve Aortic Valve Aortic Stenosis V1 1.49m/s AO Mean GR. 11mmHg V2 2.19m/s AO Peak GR. 19mmHg LVOT Diameter 2.0 (1.8-2.4cm) Doppler MARIELLA 2.14cm2 Pulmonic Valve V2 1.13m/s Tricuspid Valve TR Velocity 2.53m/s RVSP 29mmHg Conclusion lvef 65% mild LVH septal hypertrophy aortic stenosis mild SIGNED BY: EZE MILLS MD SIGNED DATE/TIME: 12/05/24 6017 CC: [address] [address] Ph: [phone] DIAGNOSTIC IMAGING Diagnostic Imaging Report : [id number] Signed PATIENT: CONCEPCION BENSONCCT: [id number] UNIT: [id number] : 1950 LOC: [facility] ROOM / BED: [address] [place] [address] AGE / SEX: 74 / F ADM STATUS: ADM IN SERVICE 1410 ORDERING PHYSICIAN: TERRY ARIAS MD PROCEDURE(s): HWOCT - HEAD WITHOUT CONTRAST REASON: GEN WEAKNESS ORDER NUMBER(s): [id number], ACCESSION NUMBER(s): [id number] EXAM: CT HEAD WITHOUT CONTRAST INDICATION: GEN WEAKNESS TECHNIQUE: CT of the head without intravenous contrast. Coronal and sagittal reformatted images are submitted. Radiation Dose : 1. Head: CT Dose: CTDI volume is 49.7 mGy. Dose-length product is 795.4 mGy*cm The dose indicators for CT are the volume Computed Tomography (CT) Dose Index (CTDIvol) and the Dose Length Product (DLP), and are measured in units of mGy and mGy-cm, respectively. These indicators are not patient dose, but values generated from the CT scanner acquisition factors. The report includes radiation exposure data for exposures received during this examination. All CT scans at this medical facility are performed using dose modulation techniques as appropriate to a performed exam including the following: Automated exposure control was utilized; adjustment of the MA and/or KV according to patient size; and use of iterative reconstruction technique. COMPARISON: None FINDINGS: There is no evidence of acute intracranial hemorrhage, extra-axial collection, mass effect, midline shift, herniation or hydrocephalus. The ventricles, sulci and cisterns are age appropriate. The arenas-white differentiation is intact. The visualized paranasal sinuses and mastoid air cells are clear. No depressed calvarial fracture. The surrounding soft tissues are unremarkable. IMPRESSION: 1. No evidence of acute intracranial abnormality. HS:Y ATED BY: DOMENICA ONEILL MD DICTATED DATE/TIME: 12/05/241458 SIGNED BY: DOMENICA ONEILL MD SIGNED DATE/TIME: 12/05/241458 CC: [place] [address] Ph: [phone] DIAGNOSTIC IMAGING Diagnostic Imaging Report : [id number] Signed PATIENT: CONCEPCION BENSONCCT: [id number] UNIT: [id number] : 1950 LOC: [facility] ROOM / BED: [address] [place] [address] / A AGE / SEX: 74 / F ADM STATUS: ADM IN SERVICE 1618 ORDERING PHYSICIAN: YASH HANNA AWNING HANGER SUPERVISOR PROCEDURE(s): CARCL - CAROTID DUPLX W COLOR DOP REASON: dizzy ORDER NUMBER(s): [id number], ACCESSION NUMBER(s): [id number] Carotid Duplex Date: 12/04/2024 05:18 PM Clinical History: dizzy Comparison: None Technique: Duplex Doppler evaluation of the extracranial carotid and vertebral arteries including color Doppler and spectral/pulsed waveform analysis was performed. Findings: RIGHT SIDE: The peak systolic velocities are 100 cm/s in the distal CCA and 143 cm/s in the proximal ICA.The ICA/CCA ratio is less than 2. The elevated velocity within the right proximal ICA appears to be from tortuous vasculature. The external carotid artery is patent with peak systolic velocity of 95 cm/s proximally. There is appropriate antegrade flow in the right vertebral artery. LEFT SIDE: The peak systolic velocities are 85 cm/s in the distal CCA and 213 cm/s in the proximal ICA.. The ICA/CCA ratio is 2.5 The external carotid artery is patent with peak systolic velocity of 81 cm/s proximally. There is appropriate antegrade flow in the left vertebral artery. IMPRESSION: 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. No hemodynamically significant stenosis involving the right internal carotid arterial system. Reference: Radiology 2003; 229:[id number] ATED BY: AURORA PARADA DO DICTATED DATE/TIME: 12/04/241754 SIGNED BY: AURORA PARADA DO SIGNED DATE/TIME: 12/04/241754 CC: [place] [address] Ph: [phone] DIAGNOSTIC IMAGING Diagnostic Imaging Report : [id number] Signed PATIENT: CONCEPCION BENSONCCT: [id number] UNIT: [id number] : 1950 LOC: ER ROOM / BED: / AGE / SEX: 74 / F ADM STATUS: REG ER SERVICE 1020 ORDERING PHYSICIAN: KAMILLA BARRETO MD PROCEDURE(s): CXRP - CHEST PORTABLE REASON: generalized weakness ORDER NUMBER(s): [id number], ACCESSION NUMBER(s): [id number] EXAM: XY CHEST PORTABLE Indication: generalized weakness Technique: Single frontal view of the chest was obtained Comparison: None FINDINGS: Lines and Tubes: None Lungs: No focal consolidation. Pleura: No effusion. No pneumothorax. Cardiomediastinal contours: Cardiomegaly. Atherosclerotic vascular calcifications of the thoracic aorta are noted. Bones: No acute osseous abnormality. IMPRESSION: No acute cardiopulmonary disease. ATED BY: DOUGLAS VELA MD DICTATED DATE/TIME: 12/04/24 103 SIGNED BY: DOUGLAS VELA MD SIGNED DATE/TIME: 12/04/24 103 CC: Condition at Discharge: Guarded Final Diagnosis/Problems List Cervical radiculopathy carotid artery stenosis vitamin D deficiency possible TIA hypertension asthma hiv osteoporosis chronic back pain Discharge Disposition: Home Discharge Instruct/Medications Diet: Cardiac 2g Na,low cholest Activity: Light activity Follow Up/Referral: fu with pcp in 1-2 weeks Medications: continue home meds as prescribed continue vitmamin d continue aspirin and lipitor Discharge Statement: "Patient was advised to return to the ER or call 911 if any headaches, dizziness, shortness of breath, chest pain, abdominal pain, bleeding, fevers, or worsening of medical condition. Patient was counseled about treatment plan, medications, possible side effects, patientverbalized understanding. All questions were answered to the best of my ability. This discharge took greater then 30 minutes in planning, reviewing documentation, counseling the patient, and discussing with other team members." ASSESSMENT ASSESSMENT Assessment Cervical radiculopathy, carotid artery stenosis Date of Service: Dec 08, 2024 Billing Provider: FRANKIE CAMP MD Common Visit Codes: 12998-VGJ/OBS DISCH DAY >30min ABBY YBARRA RESIDENT Dec 08, 2024 16:36 FRANKIE CAMP MD Dec 09, 2024 17:40
[2024-12-11 13:07] LABS: Vitamin B1, Whole Blood 116.1 nmol/L (66.5-200.0)
== END 2024-12-08 16:57 | disposition home or self-care (01) | DRG 74 ==
LOC: ER 08:41 → OVERFLOW 16:26 → WEST WING 21:13
PROVIDERS: ADMIT Internal Medicine; ATTEND Emergency Medicine
DX: M54.12 Radiculopathy, cervical region (principal); G45.9 Transient cerebral ischemic attack, unspecified; E66.9 Obesity, unspecified; Z68.34 Body mass index [BMI] 34.0-34.9, adult; J45.909 Unspecified asthma, uncomplicated; I11.9 Hypertensive heart disease without heart failure; F10.90 Alcohol use, unspecified, uncomplicated; F19.90 Other psychoactive substance use, unspecified, uncomplicated; Z20.822 Contact with and (suspected) exposure to COVID-19; M81.0 Age-related osteoporosis without current pathological fracture; G89.29 Other chronic pain; E55.9 Vitamin D deficiency, unspecified; M54.9 Dorsalgia, unspecified; Z90.49 Acquired absence of other specified parts of digestive tract; Z83.3 Family history of diabetes mellitus; Z82.49 Family history of ischemic heart disease and other diseases of the circulatory system; Z80.8 Family history of malignant neoplasm of other organs or systems; Z88.5 Allergy status to narcotic agent
CPT/HCPCS: 36415; 70450; 70551; 71045; 80048; 80053; 81001; 82306; 82607; 82746; 83036; 83880; 84425; 84443; 84484; 85025; 87426; 87804; 93005; 93306; 93886; 97110; 97116; 97163; 97530; G0378; J2405; Q0162

== ENCOUNTER → 2024-12-16 | Outpatient (CLI) | payer OTHER ==
[~2024-12-16] MED LIST changes: +ABAC1TAB3 PO; +ALEN70TA74 PO; +ERGO1CAP23 PO; +LISI20TA56 PO; +METO-289 PO
[2024-12-16 12:08] LABS: Basophils # (auto) 0 10 ^3/uL (0-0.2); Basophils % (auto) 0.6 % (0.0-2.0); Eosinophils # (auto) 0.1 10 ^3/uL (0-0.8); Eosinophils % (auto) 1.7 % (0.0-7.0); Hematocrit 39.4 % (36.0-46.0); Hemoglobin 13.3 g/dL (12.2-16.2); Lymphocytes # (auto) 1.5 10 ^3/uL (0.4-5.4); Lymphocytes % (auto) 29.2 % (10.0-50.0); Mean Corpuscular Hemoglobin 29.8 pg (28.0-32.0); Mean Corpuscular Hgb Conc. 33.8 g/dL (32.0-36.0); Mean Corpuscular Volume 88.4 fL (80.0-100.0); Monocytes # (auto) 0.5 10 ^3/uL (0-1.3); Monocytes % (auto) 10.2 % (0.0-12.0); Neutrophils % (auto) 58.3 % (37.0-80.0); Nucleated Red Blood Cells % 0.1 %; Platelet Count (auto) 265 10^3/uL (140-450); Red Blood Cells 4.45 10^6/uL (4.0-5.20); White Blood Cell 5.2 10^3/uL (4.4-10.8)
[2024-12-16 13:04] LABS: Alanine Aminotransferase 13 U/L (7-40); Alkaline Phosphatase 75 U/L (46-116); Anion Gap 6 (5-15); BUN/Creatinine Ratio 18.2 (10.0-20.0); Blood Urea Nitrogen 12 mg/dL (9-23); Calcium 9.8 mg/dL (8.7-10.4); Carbon Dioxide 28 mmol/L (20-31); Chloride 107 mmol/L (98-107); Potassium 3.9 mmol/L (3.5-5.1); Sodium 141 mmol/L (136-145); Total Protein 7.6 g/dL (5.7-8.2); Triglycerides 82 mg/dL (< 150)
[2024-12-16 13:05] LABS: Albumin 4.5 g/dL (3.2-4.8); Bilirubin, Total 0.3 mg/dL (0.2-1.0); Cholesterol 176 mg/dL (< 200); HDL Cholesterol 44 mg/dL (40-59)
[2024-12-16 13:07] LABS: Aspartate Aminotransferase 10 U/L (13-40); Glucose 113 mg/dL (74-106); LDL Cholesterol 123 mg/dL (< 100)
[2024-12-16 13:09] LABS: Folate (Folic Acid) 9.74 ng/mL (>5.38)
[2024-12-17 06:07] LABS: Baso (Absolute) 0.1 x10E3/uL (0.0-0.2); Basos 1 % (Not Estab.); Eos 1 % (Not Estab.); Eos (Absolute) 0.1 x10E3/uL (0.0-0.4); Hematocrit 41.4 % (34.0-46.6); Hemoglobin 13.7 g/dL (11.1-15.9); Immature Granulocytes (Abs) 0 x10E3/uL (0.0-0.1); Lymphs 30 % (Not Estab.); Lymphs (Absolute) 1.5 x10E3/uL (0.7-3.1); MCH 29.7 pg (26.6-33.0); MCHC 33.1 g/dL (31.5-35.7); MCV 90 fL (79-97); Monocytes 11 % (Not Estab.); Monocytes (Absolute) 0.6 x10E3/uL (0.1-0.9); Neutrophils 57 % (Not Estab.); Neutrophils (Absolute) 2.9 x10E3/uL (1.4-7.0); Platelets 293 x10E3/uL (150-450); RBC 4.62 x10E6/uL (3.77-5.28); RDW 13.1 % (11.7-15.4); WBC 5.2 x10E3/uL (3.4-10.8)
[2024-12-17 09:07] LABS: Absolute CD 4 Helper 165 /uL (359-1519); CD4/CD8 Ratio 0.16 (0.92-3.72)
== END | disposition home or self-care (01) ==
LOC: LAB 11:15
DX: Z01.419 Encounter for gynecological examination (general) (routine) without abnormal findings (principal); I10 Essential (primary) hypertension; M81.0 Age-related osteoporosis without current pathological fracture; B20 Human immunodeficiency virus [HIV] disease; E78.5 Hyperlipidemia, unspecified; M62.81 Muscle weakness (generalized)
CPT/HCPCS: 36415; 80053; 80061; 82306; 82607; 82746; 85025; 86360; 87536

== ENCOUNTER → 2025-01-12 | Outpatient (CLI) | payer OTHER | END | disposition home or self-care (01) | LOC: LAB 12:39 | DX: Z12.11 Encounter for screening for malignant neoplasm of colon (principal) | CPT/HCPCS: 82270 ==

== ENCOUNTER 2025-04-21 07:01 | Outpatient (CLI) | payer OTHER ==
[2025-04-21 07:37] LABS: Hematocrit 39.8 % (36.0-46.0); Hemoglobin 13.9 g/dL (12.2-16.2); Mean Corpuscular Hemoglobin 32.1 pg (28.0-32.0); Mean Corpuscular Volume 92.0 fL (80.0-100.0); Nucleated Red Blood Cells % 0.0 %
[2025-04-21 07:57] LABS: Alanine Aminotransferase 11 U/L (7-40); Albumin 4.6 g/dL (3.2-4.8); Alkaline Phosphatase 73 U/L (46-116); Anion Gap 9 (5-15); BUN/Creatinine Ratio 15.7 (10.0-20.0); Blood Urea Nitrogen 11 mg/dL (9-23); Calcium 10.0 mg/dL (8.7-10.4); Carbon Dioxide 24 mmol/L (20-31); Potassium 3.8 mmol/L (3.5-5.1); Sodium 143 mmol/L (136-145); Total Protein 7.5 g/dL (5.7-8.2)
[2025-04-21 07:58] LABS: Bilirubin, Total 0.4 mg/dL (0.2-1.0)
[2025-04-21 08:07] LABS: Chloride 110 mmol/L (98-107); Glucose 128 mg/dL (74-106)
[2025-04-22 04:07] LABS: Hematocrit 42.0 % (34.0-46.6); Hemoglobin 14.0 g/dL (11.1-15.9); MCH 31.7 pg (26.6-33.0); MCHC 33.3 g/dL (31.5-35.7); MCV 95 fL (79-97); RBC 4.41 x10E6/uL (3.77-5.28); RDW 13.1 % (11.7-15.4); WBC 5.9 x10E3/uL (3.4-10.8)
[2025-04-22 12:07] LABS: CD4/CD8 Ratio 0.24 (0.92-3.72)
== END 2025-04-21 17:00 | disposition home or self-care (01) ==
LOC: LAB 07:01
PROVIDERS: ATTEND Specialist
DX: E78.5 Hyperlipidemia, unspecified (principal)
CPT/HCPCS: 36415; 80053; 85025; 86360; 87536

== ENCOUNTER 2025-07-17 08:47 | Inpatient (IN) | payer OTHER ==
[~2025-07-17] VITALS: Ht 160 cm; Wt 87.2 kg
--- NOTE | 2025-07-17 09:35 | ED.PDOC ---
History of Present Illness HPI Comments 74 y/o obese F presents with c/c of chest pain, shortness of breath with congestion, and bilateral arm numbness. Patient reports on sudden, unprovoked, and atraumatic onset of pain and arm numbness at rest, while in bed, at 0600, this morning, after dealing with other aforementioned symptoms for 1x week. She comments on feeling as if her "chest is going to explode" when describing pain. Significant history fo asthma, carotid artery stenosis, cholecystectomy, HIV, HTN, osteopetrosis, and sciatica. Denial of any nausea, vomiting, cough, fever, chills, or further associated symptoms. Chief Complaint: Chest Pain Time Seen by MD: 08:50 Primary Care Provider: DARCI Reviewed Notes: Nurses Notes, Medications, Allergies Allergies: Coded Allergies: NO KNOWN ALLERGIES (Unverified , 12/04/24) Home Meds Active Scripts Lisinopril (Lisinopril) 20 Mg Tab, 40 MG PO DAILY for 30 Days, #60 TAB 2 Refills Prov:ABBY YBARRA RESIDENT 12/08/24 Ergocalciferol (VITAMIN D 25374 UNIT) 50,[address] [place], [address] UNIT PO QWEEKLY for 90 Days, #12 CAP Prov:ABBY YBARRA RESIDENT 12/08/24 Tramadol Hcl (Tramadol Hcl) 50 Mg Tab, 50 MG PO BID, #20 TAB Prov:NAM THOMAS 01/10/24 Acetaminophen (Tylenol) 325 Mg Cap, 325 MG PO Q4HPRN PRN, #30 CAP 0 Refills Take 1-2 caps po q4h prn for pain Prov:GEOVANNA CHILDERS BRAND DEVELOPMENT MANAGER 11/19/22 Reported Medications Alendronate Sodium (Alendronate Sodium) 70 Mg Tab, 1 TAB PO QWEEKLY 12/04/24 Metoprolol Succinate (Metoprolol Succinate Er) 50 Mg Tab, 1 TAB PO DAILY 12/04/24 Pkxmpvag-Pvvmhxruiodp-Tbqvonmi (Triumeq 600-50-300 mg) 1 Tab Tab, 1 TAB PO DAILY 12/04/24 [Atripla] (Atripla) TAB No Conflict Check 06/03/13 Information Source: Patient Mode of Arrival: Ambulatory Severity: Moderate Timing: Hours Duration: Since onset Prehospital treatment: None Past Medical History PAST MEDICAL HISTORY: Asthma, HIV, HTN Past Medical History (Other): osteopetrosis sciatica Surgical History: Cholecystectomy CRUSHER SCREEN REPAIRER History: No Pertinent CRUSHER SCREEN REPAIRER History Family History Family History: Reviewed,noncontributory to illness Social History Smoker: Non-Smoker Alcohol: Denies ETOH Use Drugs: Marijuana Lives In: Home All Other Systems: Reviewed and Negative (Comprehensive review of systems are negative unless stated in HPI) Physical Exam General Appearance: Moderate Distress HEENT: Normal ENT Inspection, Pharynx Normal, TMs Normal Neck: Full Range of Motion, Non-Tender, Normal, Normal Inspection Respiratory: Chest Non-Tender, Lungs Clear, No Accessory Muscle Use, No Respiratory Distress, Other (Coarse breath sounds) Cardiovascular: Irregular, No Edema, No JVD, No Murmur, No Gallop, Normal Peripheral Pulses Breast Exam: Deferred Gastrointestinal: No Organomegaly, Non Tender, No Pulsatile Mass, Normal Bowel Sounds, Soft Genitalia: Deferred Pelvic: Deferred Rectal: Deferred Extremities: No calf tenderness, Normal capillary refill, Normal inspection, Normal range of motion, Non-tender, No pedal edema Musculoskeletal : Apperance: Normal Neurologic: Alert, senior systems engineer II-XII nml as Tested, No Motor Deficits, Normal Affect, Normal Mood, No Sensory Deficits Cerebellar Function: Normal Reflexes: Normal Skin: Dry, Normal Color, Warm Peripheral Pulses: 3+ Radial (R), 3+ Radial (L) Lymphatic: No Adenopathy Was a procedure done? Was a procedure done?: No EKG EKG : Pulse Rate (adult): 130 Gary: Normal Cardiac Rhythm: Afib Block: None Hypertrophy: None ST: Normal Differential Dx Considerations may include: CT, PE, ACS, URI, PNA, AFib, angina, anxiety, among others X-Ray, Labs, Meds, VS Vital Signs Date Time Temp Pulse Resp B/P (MAP) Pulse Ox O2 Delivery O2 Flow Rate FiO2 07/17/25 12:00 74 23 165/98 (120) 99 07/17/25 11:51 70 07/17/25 11:01 134 19 161/81 (107) 94 07/17/25 10:10 150 33 192/103 (132) 95 07/17/25 09:52 152 07/17/25 09:35 130 07/17/25 09:00 130 07/17/25 08:51 97.6 74 20 182/108 97 97.6 Lab Test 07/17/25 10:38 07/17/25 10:16 07/17/25 09:10 Range/Units Urine Color Straw Yellow Urine Clarity Clear Clear Urine pH 6.5 5.0-9.0 Urine Specific [place] 1.003 1.001-1.035 Urine Protein Negative Negative Urine Ketones Negative Negative Urine Blood Negative Negative /uL Urine Nitrite Negative Negative Urine Bilirubin Negative Negative Urine Urobilinogen Normal Negative mg/dL Urine Leukocyte Esterase Negative Negative /uL Urine RBC <1 0 - 4 /hpf Urine Microscopic WBC 1 0-5 /HPF Urine Squamous Epithelial Cells Few <5 /hpf Urine Bacteria Mod H None Seen /hpf Urine Glucose Normal Normal mg/dL Troponin I High Sensitivity 24 12 </=34 ng/L White Blood Count 9.8 4.4-10.8 10^3/uL Red Blood Count 4.50 4.0-5.20 10^6/uL Hemoglobin 14.3 12.2-16.2 g/dL Hematocrit 42.3 36.0-46.0 % Mean Corpuscular Volume 94.0 80.0-100.0 fL Mean Corpuscular Hemoglobin 31.8 28.0-32.0 pg Mean Corpuscular Hemoglobin Concent 33.9 32.0-36.0 g/dL Red Cell Distribution Width 13.6 11.8-14.3 % Platelet Count 280 140-450 10^3/uL Mean Platelet Volume 8.9 6.9-10.8 fL Neutrophils (%) (Auto) 81.8 H 37.0-80.0 % Lymphocytes (%) (Auto) 11.0 10.0-50.0 % Monocytes (%) (Auto) 6.0 0.0-12.0 % Eosinophils (%) (Auto) 0.7 0.0-7.0 % Basophils (%) (Auto) 0.5 0.0-2.0 % Neutrophils # (Auto) 8.0 1.6-8.6 10 ^3/uL Lymphocytes # (Auto) 1.1 0.4-5.4 10 ^3/uL Monocytes # (Auto) 0.6 0-1.3 10 ^3/uL Eosinophils # (Auto) 0.1 0-0.8 10 ^3/uL Basophils # (Auto) 0.1 0-0.2 10 ^3/uL Nucleated Red Blood Cells 0.0 % Sodium Level 143 136-145 mmol/L Potassium Level 3.8 3.5-5.1 mmol/L Chloride Level 106 98-107 mmol/L Carbon Dioxide Level 27 20-31 mmol/L Anion Gap 10 5-15 Blood Urea Nitrogen 11 9-23 mg/dL Creatinine 0.80 0.550-1.02 mg/dL Glomerular Filtration Rate Calc 78 >90 mL/min BUN/Creatinine Ratio 13.8 10.0-20.0 Serum Glucose 163 H 74-106 mg/dL Calcium Level 9.3 8.7-10.4 mg/dL B-Type Natriuretic Peptide 85.68 0-100 pg/mL Current Medications Medications (Trade) Dose Ordered Sig/Sergio Route Start Time Stop Time Status Last Admin Amiodarone HCl 100 ml @ 600 mls/hr ONCE ONCE IV 07/17/25 10:00 07/17/25 10:09 DC 07/17/25 10:25 Amiodarone HCL/ Dextrose 200 ml @ 33.33 mls/ hr ONCE ONCE IV 07/17/25 10:15 07/17/25 16:15 07/17/25 10:47 [place] [address] Ph: [phone] DIAGNOSTIC IMAGING Diagnostic Imaging Report : [id number] Signed PATIENT: CONCEPCION BENSON ACCT: [id number] UNIT: [id number] : 1950 LOC: ER ROOM / BED: / AGE / SEX: 74 / F ADM STATUS: REG ER SERVICE 4 ORDERING PHYSICIAN: ALAYNA HARPER MD PROCEDURE(s): CXRP - CHEST PORTABLE REASON: sob ORDER NUMBER(s): [id number], ACCESSION NUMBER(s): [id number] EXAM DESCRIPTION: Chest 1 View CLINICAL HISTORY: sob COMPARISON: XY CHEST PORTABLE on DOS: 12/04/24 FINDINGS and IMPRESSION: Lines, tubes, and support devices: None. Lungs / Pleura: No consolidation. No pleural effusion. No pneumothorax. Mediastinum: Normal cardiomediastinal silhouette. Osseous structures / Soft tissues: No acute findings. ATED BY: BALBIR ORLANDO MD DICTATED DATE/TIME: 07/17/25949 SIGNED BY: BALBIR ORLANDO MD SIGNED DATE/TIME: 07/17/25949 CC: Patient alert. Complaining of shortness a breath. EKG reviewed does show atrial fibrillation. Vitals stable. New onset. Started amiodarone. Explained to the patient. Continue monitoring. Time of 1ST Reevaluation: 09:20 Reevaluation 1ST: Unchanged Patient Education/Counseling: Diagnosis, Treatment Family Education/Counseling: No Family Present SEPSIS Sepsis Screen Date sepsis recognized/suspect: Jul 17, 2025 Time Sepsis recognized/suspect: 852 Recent Procedure: No On Antibiotic Therapy: No Respiratory Rate >20: No Heart Rate >90: Yes Temp<36 C (96.8 F) or >38.3 C: No SBP <90 or MAP <65 mmHG: No New Acute Mental Status Change: No Is the patient on CPAP, BIPAP,: No Physician Orders Electrocardigram (07/17/25 08:50) Electrocardigram (07/17/25 09:50) Electrocardigram (07/17/25 11:50) Troponin-I Hs (07/17/25 11:50) Chest Portable (07/17/25 09:15) Amiodarone 360mg/200ml Premix (Nexterone (07/17/25 10:15) Vital Signs Date Time Temp Pulse Resp B/P (MAP) Pulse Ox O2 Delivery O2 Flow Rate FiO2 07/17/25 12:00 74 23 165/98 (120) 99 07/17/25 11:51 70 07/17/25 11:01 134 19 161/81 (107) 94 07/17/25 10:10 150 33 192/103 (132) 95 07/17/25 09:52 152 07/17/25 09:35 130 07/17/25 09:00 130 07/17/25 08:51 97.6 74 20 182/108 97 97.6 Laboratory Tests Test 07/17/25 09:10 White Blood Count 9.8 10^3/uL (4.4-10.8) Medications Medications Dose Ordered Sig/Sergio Route Start Time Stop Time Status Last Admin Dose Admin Amiodarone HCl 100 ml @ 600 mls/hr ONCE ONCE IV 07/17/25 10:00 07/17/25 10:09 DC 07/17/25 10:25 Amiodarone HCL/ Dextrose 200 ml @ 33.33 mls/ hr ONCE ONCE IV 07/17/25 10:15 07/17/25 16:15 07/17/25 10:47 Departure 1 Departure Time of Disposition: 09:59 Impression: Primary Impression: Atrial fibrillation Qualified Codes: I48.0 - Paroxysmal atrial fibrillation Disposition: ADMITTED INPATIENT Admit to: Med Surg Condition: Guarded Critical Care Note Critical Care Time?: Yes (90 min-critical care time only) Stability Stability form required: No Heart Score Heart Score: Heart Score Response (Comments) Value History Moderate Suspicious 1 EKG Repolarization Disturb 1 Age >65 2 Risk Factors >3 or Hx ASHD 2 Troponin Normal limit 0 Total 6 I personally scribed for ALAYNA HARPER MD ([email or web address]) on 07/17/25 at 09:35. Electronically submitted by Jermaine Olea ([email or web address]). I personally scribed for ALAYNA HARPER MD ([email or web address]) on 07/17/25 at 10:33. Electronically submitted by Jermaine Olea ([email or web address]). ALAYNA HARPER MD Jul 17, 2025 09:35
[2025-07-17 09:49] LABS: Hematocrit 42.3 % (36.0-46.0); Hemoglobin 14.3 g/dL (12.2-16.2); Mean Corpuscular Hemoglobin 31.8 pg (28.0-32.0); Mean Corpuscular Volume 94.0 fL (80.0-100.0); Nucleated Red Blood Cells % 0.0 %
--- NOTE | 2025-07-17 09:52 | DVH ---
EXAM DESCRIPTION: Chest 1 View CLINICAL HISTORY: sob COMPARISON: XY CHEST PORTABLE on DOS: 12/04/24 FINDINGS and IMPRESSION: Lines, tubes, and support devices: None. Lungs / Pleura: No consolidation. No pleural effusion. No pneumothorax. Mediastinum: Normal cardiomediastinal silhouette. Osseous structures / Soft tissues: No acute findings.
[2025-07-17 09:53] LABS: Chloride 106 mmol/L (98-107); Potassium 3.8 mmol/L (3.5-5.1); Sodium 143 mmol/L (136-145)
[2025-07-17 09:54] LABS: Anion Gap 10 (5-15); Carbon Dioxide 27 mmol/L (20-31)
[2025-07-17 09:55] LABS: Calcium 9.3 mg/dL (8.7-10.4)
[2025-07-17 10:00] LABS: BUN/Creatinine Ratio 13.8 (10.0-20.0); Blood Urea Nitrogen 11 mg/dL (9-23)
[2025-07-17 10:01] LABS: Glucose 163 mg/dL (74-106)
[2025-07-17 10:10] VITALS: PULSE 150; RESP 33; O2SAT 95
[2025-07-17] MEDS: AMIODARONE BOLUS KIT 100 ML IV ONE (10:25)
[2025-07-17] MEDS: AMIODARONE 360mg/200mL PREMIX 200 ML IV ONE (10:47)
[2025-07-17 10:54] LABS: Urine Protein, UAD Negative (Negative)
--- NOTE | 2025-07-17 13:45 | ECG ---
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
[2025-07-17] MEDS ORDERED: ONDANSETRON HCL 4 MG/2 ML VIAL IV PRN (14:30)
[2025-07-17] MEDS ORDERED: MORPHINE SULFATE INJ 2 MG/ml SYRG IV PRN (14:30)
[2025-07-17] MEDS ORDERED: NITROGLYCERIN 0.4 MG SL TAB SL PRN (14:30)
[2025-07-17] MEDS ORDERED: ACETAMINOPHEN 325 MG TAB PO PRN (14:30)
[2025-07-17] MEDS ORDERED: DOCUSATE SOD 100 MG CAP PO PRN (14:30)
--- NOTE | 2025-07-17 14:46 | DVHHP2 ---
History of Present Illness Reason for Visit: Chest pain, shortness of breath History of Present Illness Chrystal Bello is a 74-year-old female with past medical history of asthma, hypertension, HIV, osteoporosis, and sciatica who came to the hospital for shortness of breath and palpitations. Patient states she was recently told that she will need a MRI of her back. She has been having intermittent anxiety for the last week due to being afraid of the MRI. She states she has been having periods of shortness of breath and palpitations. This morning about 0530 she had a sudden onset of gasping for air, nausea, vomiting, her heart felt like it was going to pound out of her chest, and bilateral arm numbness. This prompted her daughter to bring her to the hospital. Cardiovascular: HTN Pulmonary: Asthma Infectious disease: HIV Past Surgical History: Cholecystectomy, Hysterectomy, Tubal Ligation Smoke: No ALCOHOL: rare Drugs: Marijuana Lives: with Family Domestic Violence: Neg Review of Systems Constitutional: No: Fever, Chills, Sweats, Weakness, Malaise, Other Eyes: No: Pain, Vision change, Conjunctivae inflammation, Eyelid inflammation, Other, Redness ENT: No: Ear pain, Ear discharge, Nose pain, Nose discharge, Nose congestion, Mouth pain, Mouth swelling, Throat pain, Throat swelling, Other Respiratory: Shortness of breath; No: Cough, Dry, SOB with excertion, Wheezing, Hemoptysis, Pleuritic Pain, Sputum, Wheezing, Other Cardiovascular: Chest Pain, Palpitations; No: Orthopnea, Paroxysmal Noc. Dyspne a, Edema, Lt Headedness, Other Gastrointestinal: No: Nausea, Vomiting, Abdominal Pain, Diarrhea, Constipation, Melena, Hematochezia, Other Genitourinary: No Dysuria, No Frequency, No Incontinence, No Hematuria, No Retention, No Other Musculoskeletal: No: other, neck pain, shoulder pain, arm pain, back pain, hand pain, leg pain, foot pain Skin: No: Rash, Lesions, Jaundice, Bruising, Other Neurological: No: Weakness, Numbness, Incoordination, Change in speech, Confusion, Seizures, Other Allergies: Coded Allergies: NO KNOWN ALLERGIES (Unverified , 12/04/24) Exam Vital Signs Vital Signs Date Time Temp Pulse Resp B/P (MAP) Pulse Ox O2 Delivery O2 Flow Rate FiO2 07/17/25 12:00 74 23 165/98 (120) 99 07/17/25 08:51 97.6 97.6 General Appearance: Alert, Oriented X3, Cooperative, mild distress HEENT: Atraumatic, PERRLA Respiratory: Clear to auscultation, Normal air movement Cardiovascular: Regular rate, Normal S1, Normal S2 Abdominal: Normal bowel sounds, Soft, No tenderness, No hepatospenomegaly Extremities: No clubbing, No cyanosis, No edema Skin: No rashes, No breakdown, No significant lesion Neuro: Normal gait, Normal speech, Strength at 5/5 X4 ext Psych/Mental Status: Mental status NL Labs/Xrays Labs Test 07/17/25 12:06 07/17/25 10:38 07/17/25 09:10 Range/Units Troponin I High Sensitivity 35 *H </=34 ng/L Urine Color Straw Yellow Urine Clarity Clear Clear Urine pH 6.5 5.0-9.0 Urine Specific [place] 1.003 1.001-1.035 Urine Protein Negative Negative Urine Ketones Negative Negative Urine Blood Negative Negative /uL Urine Nitrite Negative Negative Urine Bilirubin Negative Negative Urine Urobilinogen Normal Negative mg/dL Urine Leukocyte Esterase Negative Negative /uL Urine RBC <1 0 - 4 /hpf Urine Microscopic WBC 1 0-5 /HPF Urine Squamous Epithelial Cells Few <5 /hpf Urine Bacteria Mod H None Seen /hpf Urine Glucose Normal Normal mg/dL White Blood Count 9.8 4.4-10.8 10^3/uL Red Blood Count 4.50 4.0-5.20 10^6/uL Hemoglobin 14.3 12.2-16.2 g/dL Hematocrit 42.3 36.0-46.0 % Mean Corpuscular Volume 94.0 80.0-100.0 fL Mean Corpuscular Hemoglobin 31.8 28.0-32.0 pg Mean Corpuscular Hemoglobin Concent 33.9 32.0-36.0 g/dL Red Cell Distribution Width 13.6 11.8-14.3 % Platelet Count 280 140-450 10^3/uL Mean Platelet Volume 8.9 6.9-10.8 fL Neutrophils (%) (Auto) 81.8 H 37.0-80.0 % Lymphocytes (%) (Auto) 11.0 10.0-50.0 % Monocytes (%) (Auto) 6.0 0.0-12.0 % Eosinophils (%) (Auto) 0.7 0.0-7.0 % Basophils (%) (Auto) 0.5 0.0-2.0 % Neutrophils # (Auto) 8.0 1.6-8.6 10 ^3/uL Lymphocytes # (Auto) 1.1 0.4-5.4 10 ^3/uL Monocytes # (Auto) 0.6 0-1.3 10 ^3/uL Eosinophils # (Auto) 0.1 0-0.8 10 ^3/uL Basophils # (Auto) 0.1 0-0.2 10 ^3/uL Nucleated Red Blood Cells 0.0 % Sodium Level 143 136-145 mmol/L Potassium Level 3.8 3.5-5.1 mmol/L Chloride Level 106 98-107 mmol/L Carbon Dioxide Level 27 20-31 mmol/L Anion Gap 10 5-15 Blood Urea Nitrogen 11 9-23 mg/dL Creatinine 0.80 0.550-1.02 mg/dL Glomerular Filtration Rate Calc 78 >90 mL/min BUN/Creatinine Ratio 13.8 10.0-20.0 Serum Glucose 163 H 74-106 mg/dL Calcium Level 9.3 8.7-10.4 mg/dL B-Type Natriuretic Peptide 85.68 0-100 pg/mL Chest 1 View FINDINGS and IMPRESSION: Lines, tubes, and support devices: None. Lungs / Pleura: No consolidation. No pleural effusion. No pneumothorax. Mediastinum: Normal cardiomediastinal silhouette. Osseous structures / Soft tissues: No acute findings. SEPSIS Sepsis Screen Date sepsis recognized/suspect: Jul 17, 2025 Time Sepsis recognized/suspect: 0853 Recent Procedure: No On Antibiotic Therapy: No Respiratory Rate >20: No Heart Rate >90: Yes Temp<36 C (96.8 F) or >38.3 C: No SBP <90 or MAP <65 mmHG: No New Acute Mental Status Change: No Is the patient on CPAP, BIPAP,: No Physician Orders Electrocardigram (07/17/25 09:50) Electrocardigram (07/17/25 11:50) Chest Portable (07/17/25 09:15) Amiodarone 360mg/200ml Premix (Nexterone (07/17/25 10:15) Admit (07/17/25 14:20) Code Status (07/17/25 14:20) Hydrocodone-Acet 5/325mg Tab ([place] 5/32 (07/17/25 14:30) Ondansetron Hcl (Zofran) (07/17/25 14:30) Docusate Sodium Capsule (Colace Capsule) (07/17/25 14:30) Complete Blood Count (07/18/25 04:00) Comprehensive Metabolic Panel (07/18/25 04:00) Cardiac Diet-2gna,Lofat,Lochol (07/17/25 Dinner) Echo 2d Mode Cardiac Dop (07/17/25 14:20) Condition: Serious (07/17/25 14:20) Acetaminophen Tablet (Tylenol Tablet) (07/17/25 14:30) Nitroglycerin Sublingual (Ntrostat Subli (07/17/25 14:30) Morphine Sulfate Injection (07/17/25 14:30) Stat Ekg For Chest Pain (07/17/25 14:20) Notify Md Of Changes From Base (07/17/25 14:20) Home Management Supervisor For 24 Hours (07/17/25 14:20) Emergency Dysrhythmia Protocol (07/17/25 14:20) Rhythm Strips Once Every Shift (07/17/25 14:20) Oxygen By Nasal Cannula (07/17/25 14:20) * Cardiology Consult (07/17/25 14:20) Vital Signs Date Time Temp Pulse Resp B/P (MAP) Pulse Ox O2 Delivery O2 Flow Rate FiO2 07/17/25 12:00 74 23 165/98 (120) 99 07/17/25 11:51 70 07/17/25 11:01 134 19 161/81 (107) 94 07/17/25 10:10 150 33 192/103 (132) 95 07/17/25 09:52 152 07/17/25 09:35 130 07/17/25 09:00 130 07/17/25 08:51 97.6 74 20 182/108 97 97.6 Laboratory Tests Test 07/17/25 09:10 White Blood Count 9.8 10^3/uL (4.4-10.8) Medications Medications Dose Ordered Sig/Sergio Route Start Time Stop Time Status Last Admin Dose Admin Amiodarone HCl 100 ml @ 600 mls/hr ONCE ONCE IV 07/17/25 10:00 07/17/25 10:09 DC 07/17/25 10:25 600 MLS/HR Amiodarone HCL/ Dextrose 200 ml @ 33.33 mls/ hr ONCE ONCE IV 07/17/25 10:15 07/17/25 16:15 07/17/25 10:47 33.33 MLS/HR Assessment/Plan Assessment/Plan Assessment: New onset atrial fibrillation with RVR, Asthma, Hypertension, HIV, Osteoporosis, Plan: Admit to Tele, Cardiology consult, ECHO, IV amiodarone, TSH, A1c, Lipid panel, Home medications reconciled, Plan discussed with: Patient, Daughter My Orders Orders - GILLES UMANA Procedure Category Date Status Time Admit ADMIT 07/17/25 Verified 14:20 Code Status CODE 07/17/25 Verified 14:20 Hydrocodone-Acet PHA 07/17/25 Verified 5/325mg Tab ([place] 14:30 Ondansetron Hcl PHA 07/17/25 Verified (Zofran) 14:30 Docusate Sodium PHA 07/17/25 Verified Capsule (Colace 14:30 Complete Blood Count LAB 07/18/25 Verified 04:00 Comprehensive LAB 07/18/25 Verified Metabolic Panel 04:00 Cardiac DIET 07/17/25 Verified Diet-2gna,Lofat,Lochol Dinner Echo 2d Mode Cardiac US 07/17/25 Verified DOP 14:20 Condition: Serious [facility] 07/17/25 Verified 14:20 Acetaminophen Tablet PHA 07/17/25 Verified (Tylenol Tablet) 14:30 Nitroglycerin PHA 07/17/25 Verified Sublingual (Ntrostat 14:30 Morphine Sulfate PHA 07/17/25 Verified Injection 14:30 Stat Ekg For Chest [facility] 07/17/25 Verified Pain 14:20 Notify Md Of Changes [facility] 07/17/25 Verified From Base 14:20 Home Management Supervisor For QUENTIN 07/17/25 Verified 24 Hours 14:20 Emergency Dysrhythmia [facility] 07/17/25 Verified Protocol 14:20 Rhythm Strips Once [facility] 07/17/25 Verified Every Shift 14:20 Oxygen By Nasal RT 07/17/25 Verified Cannula 14:20 * Cardiology Consult CONS 07/17/25 Verified 14:20 Date of Service: Jul 17, 2025 Billing Provider: GILLES UMANA Common Visit Codes: [id number] INP/OBS CARE (HIGH) GILLES UMANA Jul 17, 2025 14:46
[2025-07-17 15:01] LABS: Triglycerides 131 mg/dL (< 150)
[2025-07-17 15:03] LABS: HDL Cholesterol 50 mg/dL (40-59)
[2025-07-17 15:05] LABS: Cholesterol 217 mg/dL (< 200)
[2025-07-17 17:39] VITALS: PULSE 66; RESP 17; RESP 18; TEMP 97.9; O2SAT 98
[2025-07-17] MEDS ORDERED: ATOR10TA52 PO (17:58)
[2025-07-17] MEDS ORDERED: PREG25CA28 PO (17:58)
[2025-07-17] MEDS ORDERED: BACDST PO (17:58)
[2025-07-17] MEDS ORDERED: BACL10TA PO (17:59)
[2025-07-17] MEDS ORDERED: BACLOFEN 10 MG TAB PO PRN (18:00)
[2025-07-17] MEDS ORDERED: PATIENTS OWN MEDICATION (Alendronate Sodium 1 TAB) PO SCH (18:00)
[2025-07-17 20:00] VITALS: PULSE 63; PULSE 71; RESP 17
--- NOTE | 2025-07-17 20:02 | DVHSR ---
APPROVED REPORT EXAM: Two-dimensional and M-mode echocardiogram with Doppler and color Doppler. Blood Pressure: 161/98 mmHg INDICATION new onset atrial fibrillation RISK FACTORS Obesity: Height: 5'3, Weight: 194 DIMENSIONS LVDd5.0 (3.8-5.7cm)LA (2D)4.7 (1.9-4.0cm)Aortic Root2.9 (2.0-3.7cm) LVDs2.7 (2.5-4.0cm)LA (MM) (1.9-4.0cm)Aortic Cusp Exc1.5 (1.5-2.0cm) EF (%) 65.0 (55-70%)Rt. Atrium3.5 (1.9-4.0cm)Asc. Aorta3.5 cm IVSd0.9 (0.7-1.1cm)RV (D)3.7 (1.8-2.4cm) PWd1.1 (0.7-1.1cm) Mitral Valve MitralMitral Stenosis E wave1.01m/sMV Mean GR.mmHg A wave0.59m/sMV Peak GR.93mmHg E/A ratio1.72D MVAcm2 DECEL [id number] 1/2 Timems Aortic Valve Aortic ValveAortic Stenosis V11.27m/Driss Mean GR.6mmHg V21.76m/Driss Peak GR.12mmHg LVOT Diameter2.0 (1.8-2.4cm)Doppler AVA2.27cm2 Pulmonic Valve V21.10m/s Tricuspid Valve TR Velocity2.30m/s [id number] Conclusion SR Aortic root enlargement. LVH. Valves are normal LV function is normal at 50% with normal RV function. Doppler is norlmal No masses or vegetaions. Normal doppler No PE
--- NOTE | 2025-07-17 20:09 | DVHINCON2 ---
Date Seen: Jul 17, 2025 Referring Physician Addi Reason for Consultation new onset Atrial Fibrillation History of Present Illness 74-year-old female with past medical history of asthma, hypertension, HIV, osteoporosis, and sciatica who came to the hospital for shortness of breath and palpitations. Patient states she has been having increased amount some anxiety last couple of weeks feeling her heart racing. Upon evaluation in the ER patient had EKG showing atrial fibrillation with rapid ventricular response at 152 beats per minute, nonspecific ST and T-wave abnormality. Patient was started on IV amiodarone for which patient converted to sinus rhythm. Cardiology consulted. Past Medical History HTN Marijuana use Asthma HIV Past Surgical History No previous cardiac surgeries Family History: Cancer G8 MOTHER G8 FATHER Family history: Cardiovascular disease G8 FATHER Family history: Diabetes mellitus G8 MOTHER Social History Marijuana use, denies any alcohol or tobacco use Allergies: Coded Allergies: NO KNOWN ALLERGIES (Unverified , 12/04/24) Home Meds Active Scripts Lisinopril (Lisinopril) 20 Mg Tab, 40 MG PO DAILY for 30 Days, #60 TAB 2 Refills Prov:ABBY YBARRA RESIDENT 12/08/24 Ergocalciferol (VITAMIN D 54969 UNIT) 50,000 [place], [address] UNIT PO QWEEKLY for 90 Days, #12 CAP Prov:ABBY YBARRA RESIDENT 12/08/24 Tramadol Hcl (Tramadol Hcl) 50 Mg Tab, 50 MG PO BID, #20 TAB Prov:NAM THOMAS 01/10/24 Acetaminophen (Tylenol) 325 Mg Cap, 325 MG PO Q4HPRN PRN, #30 CAP 0 Refills Take 1-2 caps po q4h prn for pain Prov:GEOVANNA CHILDERS [facility] 11/19/22 Reported Medications Baclofen (Baclofen) 10 Mg Tab, 10 MG PO BID PRN, TAB 07/17/25 Atorvastatin Calcium (ATORVASTATIN CALCIUM) 10 Mg Tab, 1 TAB PO HS, #30 TAB 5 Refills 07/17/25 Pregabalin (Pregabalin) 25 Mg Cap, 25 MG PO BID, CAP 07/17/25 Sulfamethoxazole W/Trimethopri (Bactrim Ds Tablet) 1 Tab Tb, 1 TAB PO MWF, TAB 07/17/25 Alendronate Sodium (Alendronate Sodium) 70 Mg Tab, 1 TAB PO QWEEKLY 12/04/24 Metoprolol Succinate (Metoprolol Succinate Er) 50 Mg Tab, 1 TAB PO DAILY 12/04/24 Zjrbfdau-Bnfbmewnaahl-Ckvxjnye (Triumeq 600-50-300 mg) 1 Tab Tab, 1 TAB PO DAILY 12/04/24 [Atripla] (Atripla) TAB No Conflict Check 06/03/13 Current Medications Current Medications Medications (Trade) Dose Ordered Sig/Sergio Route PRN Reason Start Time Stop Time Status Last Admin Acetaminophen/ Hydrocodone Bitart ([place] 5/325MG Tab) 1 tab Q4HP PRN PO MODERATE PAIN (4-6 PAIN SCALE) 07/17/25 14:30 Ondansetron HCl (Zofran) 4 mg Q4HP PRN IV NAUSEA / VOMITING 07/17/25 14:30 Docusate Sodium (Colace Capsule) 100 mg BIDPRN PRN PO FOR CONSTIPATION 07/17/25 14:30 Acetaminophen (Tylenol Tablet) 650 mg Q6HP PRN PO PAIN SCALE 1-3 OR TEMP>100.4 07/17/25 14:30 Nitroglycerin (Ntrostat Sublingual) 0.4 mg Q5MINP PRN SL FOR CHEST PAIN 07/17/25 14:30 Morphine Sulfate 2 mg Q30M PRN IV FOR CHEST PAIN 07/17/25 14:30 Amiodarone HCL/ Dextrose 200 ml @ 16.66 mls/ hr Q12H IV 07/17/25 20:45 Lisinopril (Zestril Tablet) 40 mg DAILY PO 07/18/25 10:00 Metoprolol Succinate (Toprol Xl) 50 mg DAILY PO 07/18/25 10:00 Tramadol HCl (Ultram) 50 mg BID PO 07/17/25 22:00 Patient Own Medication 1 tab DAILY PO 07/18/25 10:00 UNV Patient Own Medication 1 tab QWEEKLY PO 07/17/25 18:00 UNV Pregabalin (Lyrica Capsule) 25 mg BID PO 07/17/25 22:00 Trimethoprim/ Sulfamethoxazole (Bactrim Ds Tablet) 1 tab MWF PO 07/19/25 10:00 Atorvastatin Calcium (Lipitor) 10 mg HS PO 07/17/25 22:00 Baclofen (Liorisal Tablet) 10 mg BID PRN PO FOR MUSCLE SPASM 07/17/25 18:00 Review of Systems Constitutional: No: Fever, Chills, Sweats, Weakness, Malaise, Other Eyes: No: Pain, Vision change, Conjunctivae inflammation, Eyelid inflammation, Other, Redness ENT: No: Ear pain, Ear discharge, Nose pain, Nose discharge, Nose congestion, Mouth pain, Mouth swelling, Throat pain, Throat swelling, Other Respiratory: No: Cough, Dry, Shortness of breath, SOB with exertion, Wheezing, Hemoptysis, Pleuritic Pain, Sputum, Wheezing, Other Cardiovascular: ; No: Chest Pain Palpitations, Orthopnea, Paroxysmal Noc. Dyspnea, Edema, Lt Headedness, Other Gastrointestinal: No: Nausea, Vomiting, Abdominal Pain, Diarrhea, Constipation, Melena, Hematochezia, Other Genitourinary: No Dysuria, No Frequency, No Incontinence, No Hematuria, No Retention, No Other Musculoskeletal: neck pain; No: other, shoulder pain, arm pain, back pain, hand pain, leg pain, foot pain Skin: No: Rash, Lesions, Jaundice, Bruising, Other Neurological: Other (Dizziness, headache.); No: Weakness, Numbness, Incoordination, Change in speech, Confusion, Seizures Vital Signs Vital Signs Date Time Temp Pulse Resp B/P (MAP) Pulse Ox O2 Delivery O2 Flow Rate FiO2 07/17/25 17:39 66 18 98 Nasal Cannula* 3 32 07/17/25 17:39 97.9 97.9 Physical Exam General appearance: Patient is well-developed, well-nourished, in no acute distress. HEENT: Exam shows: Normocephalic, atraumatic, PERRLA, EOMI Neck: Supple, no bruits Chest: Equal chest excursion bilaterally. Breath sounds normal-no rales or wheezes. Heart: Rhythm: Regular rate; no murmur or gallop Abdomen: Exam shows: Soft, nontender, nondistended Musculoskeletal: No clubbing, no cyanosis, no lower extremity edema Dermatology: Skin warm, moist. Neurological: Exam shows: Alert and oriented x4, normal speech Available prior records, labs, EKG, rhythm strips reviewed and interpreted Labs/Diagnostic Data Labs Test 07/17/25 12:06 07/17/25 10:38 07/17/25 09:10 Range/Units Troponin I High Sensitivity 35 *H </=34 ng/L Urine Color Straw Yellow Urine Clarity Clear Clear Urine pH 6.5 5.0-9.0 Urine Specific [place] 1.003 1.001-1.035 Urine Protein Negative Negative Urine Ketones Negative Negative Urine Blood Negative Negative /uL Urine Nitrite Negative Negative Urine Bilirubin Negative Negative Urine Urobilinogen Normal Negative mg/dL Urine Leukocyte Esterase Negative Negative /uL Urine RBC <1 0 - 4 /hpf Urine Microscopic WBC 1 0-5 /HPF Urine Squamous Epithelial Cells Few <5 /hpf Urine Bacteria Mod H None Seen /hpf Urine Glucose Normal Normal mg/dL White Blood Count 9.8 4.4-10.8 10^3/uL Red Blood Count 4.50 4.0-5.20 10^6/uL Hemoglobin 14.3 12.2-16.2 g/dL Hematocrit 42.3 36.0-46.0 % Mean Corpuscular Volume 94.0 80.0-100.0 fL Mean Corpuscular Hemoglobin 31.8 28.0-32.0 pg Mean Corpuscular Hemoglobin Concent 33.9 32.0-36.0 g/dL Red Cell Distribution Width 13.6 11.8-14.3 % Platelet Count 280 140-450 10^3/uL Mean Platelet Volume 8.9 6.9-10.8 fL Neutrophils (%) (Auto) 81.8 H 37.0-80.0 % Lymphocytes (%) (Auto) 11.0 10.0-50.0 % Monocytes (%) (Auto) 6.0 0.0-12.0 % Eosinophils (%) (Auto) 0.7 0.0-7.0 % Basophils (%) (Auto) 0.5 0.0-2.0 % Neutrophils # (Auto) 8.0 1.6-8.6 10 ^3/uL Lymphocytes # (Auto) 1.1 0.4-5.4 10 ^3/uL Monocytes # (Auto) 0.6 0-1.3 10 ^3/uL Eosinophils # (Auto) 0.1 0-0.8 10 ^3/uL Basophils # (Auto) 0.1 0-0.2 10 ^3/uL Nucleated Red Blood Cells 0.0 % Sodium Level 143 136-145 mmol/L Potassium Level 3.8 3.5-5.1 mmol/L Chloride Level 106 98-107 mmol/L Carbon Dioxide Level 27 20-31 mmol/L Anion Gap 10 5-15 Blood Urea Nitrogen 11 9-23 mg/dL Creatinine 0.80 0.550-1.02 mg/dL Glomerular Filtration Rate Calc 78 >90 mL/min BUN/Creatinine Ratio 13.8 10.0-20.0 Serum Glucose 163 H 74-106 mg/dL Hemoglobin A1c 5.7 <5.7 % A1C Calcium Level 9.3 8.7-10.4 mg/dL B-Type Natriuretic Peptide 85.68 0-100 pg/mL Triglycerides Level 131 < 150 mg/dL Cholesterol Level 217 H < 200 mg/dL LDL Cholesterol 162 H < 100 mg/dL HDL Cholesterol 50 40-59 mg/dL Thyroid Stimulating Hormone (TSH) 1.18 0.55-4.78 uIU/mL Assessment * New onset atrial fibrillation with episode of RVR - converted to sinus rhythm. Metoprolol 50 mg p.o. daily. TSH normal. Check echocardiogram. Continue Lovenox 1 milligram/kilogram b.i.d.. * Mildly elevated troponin - denies chest pain. Likely demand ischemia in setting of new onset atrial fibrillation with RVR. Follow up echo. Continue trending troponin. Continue aspirin and statin. * HTN - continue metoprolol, lisinopril. * HIV - management per primary team Case Discussed with Dr Sarmiento. Currently sinus rhythm on tele. Continue metoprolol p.o.. Continue anticoagulation therapy with Lovenox. Follow up echo. Critical care, time spent: 40 minutes This medical document was created using an electronic medical record system with voice recognition software and computerized dictation system. Although this document has been carefully reviewed, there might still be some phonetic and typographical errors. Occasional wrong-word or ``sound-alike substitutions may have occurred due to the inherent limitations of voice recognition software. These areas are purely typographical due to imperfections of the software programs and do not reflect any compromise in the patient's medical care. Please read the chart carefully and recognize, using context, where these substitutions have occurred. Thank you for allowing me to participate in the management of this patient. The treatment plan was discussed with and agreed upon by patient/family including requesting consultants and ordering of imaging/procedures. Plan discussed with: Patient NYHA Physical activity limitations: Class2(Slight)fatigue,sob Date of Service: Jul 17, 2025 Billing Provider: VASQUEZ FARR Cardiology Common Codes: [id number] INP/OBS CARE (High), [id number] CARE 30-74 MIN VASQUEZ FRAR Jul 17, 2025 20:09
[2025-07-17] MEDS ORDERED: AMIODARONE 360mg/200mL PREMIX 200 ML IV SCH (20:45)
[2025-07-17 21:00] VITALS: BP 175/97; PULSE 71; RESP 18; TEMP 98.1; O2SAT 98
[2025-07-17] MEDS: AMIODARONE HCL 200 MG TAB PO SCH (21:38)
[2025-07-17] MEDS: PREGABALIN 25 MG CAP PO SCH (21:39)
[2025-07-17] MEDS: ATORVASTATIN 20 MG TAB PO SCH (21:39)
[2025-07-17] MEDS: ENOXAPARIN SOD 100 MG/1 ML SYRINGE SC SCH (21:40)
[2025-07-18] VITALS (8 sets, daily range): BP systolic 106–178; BP diastolic 56–98; PULSE 57–75; RESP 15–19; TEMP 97–98.5; O2SAT 95–100
[2025-07-18] MEDS: HYDROcodone-ACET 5/325MG TAB PO PRN (00:06)
[2025-07-18] MEDS: hydrALAZINE HCL 20 MG/ML VL IV PRN (06:20)
[2025-07-18 07:06] LABS: Hematocrit 39.3 % (36.0-46.0); Hemoglobin 13.3 g/dL (12.2-16.2); Mean Corpuscular Hemoglobin 31.9 pg (28.0-32.0); Mean Corpuscular Volume 94.6 fL (80.0-100.0); Nucleated Red Blood Cells % 0.0 %
[2025-07-18 07:18] LABS: Alanine Aminotransferase 13 U/L (7-40); Albumin 4.0 g/dL (3.2-4.8); Alkaline Phosphatase 83 U/L (46-116); Anion Gap 5 (5-15); BUN/Creatinine Ratio 12.5 (10.0-20.0); Bilirubin, Total 0.5 mg/dL (0.2-1.0); Calcium 9.1 mg/dL (8.7-10.4); Carbon Dioxide 31 mmol/L (20-31); Potassium 3.9 mmol/L (3.5-5.1); Sodium 144 mmol/L (136-145); Total Protein 6.8 g/dL (5.7-8.2)
[2025-07-18 07:40] LABS: Blood Urea Nitrogen 8 mg/dL (9-23); Chloride 108 mmol/L (98-107); Glucose 120 mg/dL (74-106)
[2025-07-18] MEDS: [UNRECOGNIZED DRUG - OTHER] PO SCH (10:00)
[2025-07-18] MEDS: LISINOPRIL 20 MG TAB PO SCH (10:25)
[2025-07-18] MEDS: METOPROLOL SUCCINATE XL 50 MG TAB PO SCH (10:25)
--- NOTE | 2025-07-18 12:05 | DVHPN2 ---
Consult Progress Note Subjective Patient reports: No new complaints, Feels better Objective vital signs Vital Sign Date Time Temp Pulse Resp B/P (MAP) Pulse Ox O2 Delivery O2 Flow Rate FiO2 07/18/25 10:25 74 183/90 07/18/25 09:00 98.3 15 100 98.3 07/17/25 20:00 Nasal Cannula* 3 32 Total Intake and Output 07/17/25 07/17/25 07/18/25 15:00 23:00 07:00 Intake Total 1160 ml Balance 1160 ml medications Current Medications Medications Dose Ordered Sig/Sergio Route Start Time Stop Time Status Last Admin Dose Admin Acetaminophen/ Hydrocodone Bitart 1 tab Q4HP PRN PO 07/17/25 14:30 07/18/25 00:06 1 TAB Ondansetron HCl 4 mg Q4HP PRN IV 07/17/25 14:30 Docusate Sodium 100 mg BIDPRN PRN PO 07/17/25 14:30 Acetaminophen 650 mg Q6HP PRN PO 07/17/25 14:30 Nitroglycerin 0.4 mg Q5MINP PRN SL 07/17/25 14:30 Morphine Sulfate 2 mg Q30M PRN IV 07/17/25 14:30 Lisinopril 40 mg DAILY PO 07/18/25 10:00 07/18/25 10:25 40 MG Metoprolol Succinate 50 mg DAILY PO 07/18/25 10:00 07/18/25 10:25 50 MG Tramadol HCl 50 mg BID PO 07/17/25 22:00 07/18/25 10:26 50 MG Patient Own Medication 1 tab DAILY PO 07/18/25 10:00 Patient Own Medication 1 tab QWEEKLY PO 07/17/25 18:00 UNV Pregabalin 25 mg BID PO 07/17/25 22:00 07/18/25 10:25 25 MG Trimethoprim/ Sulfamethoxazole 1 tab MWF PO 07/19/25 10:00 Atorvastatin Calcium 10 mg HS PO 07/17/25 22:00 07/17/25 21:39 10 MG Baclofen 10 mg BID PRN PO 07/17/25 18:00 Enoxaparin Sodium 90 mg Q12HR SC 07/17/25 22:00 07/18/25 10:26 90 MG Amiodarone HCl 200 mg BID PO 07/17/25 22:00 07/18/25 10:25 200 MG Hydralazine HCl 10 mg Q6HP PRN IV 07/18/25 01:00 07/18/25 06:20 10 MG laboratory and microbiology Laboratory Tests 07/18/25 06:08 Test 07/18/25 06:08 Range/Units Serum Glucose 120 H 74-106 mg/dL Problem List/Assessment/Plan Problem List/Assessment/Plan Assessment * New onset atrial fibrillation with episode of RVR - converted to sinus rhythm. Metoprolol 50 mg p.o. daily. TSH normal. Check echocardiogram. Continue Lovenox 1 milligram/kilogram b.i.d.. * Mildly troponin leak- denies chest pain. Likely troponin leak in setting of new onset atrial fibrillation with RVR. Follow up echo with normal EF, no wall motion abnormalities, no significant valvular structural abnormalities. Continue aspirin and statin. Recommend outpatient cardiology follow up. * Uncontrolled HTN - continue metoprolol unable to titrate due to lower HR. Continue lisinopril 40 mg p.o. daily. Amlodipine 5 mg p.o. daily started. * HIV - management per primary team * Acute hypoxic respiratory failure, Hx Asthma, - management per primary team Case Discussed with Dr Sarmiento. Continues to be in sinus rhythm on tele. Continue metoprolol p.o.. Continue anticoagulation therapy with Lovenox switch to Eliquis 5 mg p.o. twice daily upon discharge. Normal EF on echo no significant valvular structural abnormalities. No further cardiology workup indicated at this time. Discussed plan of care with patient recommend outpatient cardiology follow up. Stable for DC from Cardiology standpoint once BP better controlled. This medical document was created using an electronic medical record system with voice recognition software and computerized dictation system. Although this document has been carefully reviewed, there might still be some phonetic and typographical errors. Occasional wrong-word or ``sound-alike substitutions may have occurred due to the inherent limitations of voice recognition software. These areas are purely typographical due to imperfections of the software programs and do not reflect any compromise in the patient's medical care. Please read the chart carefully and recognize, using context, where these substitutions have occurred. Thank you for allowing me to participate in the management of this patient. The treatment plan was discussed with and agreed upon by patient/family including requesting consultants and ordering of imaging/procedures. Plan discussed with: Patient, Daughter Date of Service: Jul 18, 2025 Billing Provider: VASQUEZ FARR Common Visit Codes: [id number] INP/OBS CARE(HIGH) VASQUEZ FARR Jul 18, 2025 12:05
--- NOTE | 2025-07-18 23:42 | DVHPN2 ---
Subjective Patient is seen and examined at bedside. No heart palpitation. No chest pain. Reviewed: Care Plan, H&P, Labs, Medications, Previous Orders, Radiology Changes from previous H/P or p: No Changes Eyes: No Pain, No Vision change, No Conjunctivae inflammation, No Eyelid inflammation, No Other, No Redness ENT: No Ear pain, No Ear discharge, No Nose pain, No Nose discharge, No Nose congestion, No Mouth pain, No Mouth swelling, No Throat pain, No Throat swelling, No Other Cardiovascular: Chest Pain, Palpitations; No Orthopnea, No Paroxysmal Noc. Dyspnea, No Edema, No Lt Headedness, No Other Respiratory: No Cough, No Dry; Shortness of breath; No SOB with excertion, No Wheezing, No Hemoptysis, No Pleuritic Pain, No Sputum, No Other Gastrointestinal: No Nausea, No Vomiting, No Abdominal Pain, No Diarrhea, No Constipation, No Melena, No Hematochezia, No Other Genitourinary: No Dysuria, No Frequency, No Incontinence, No Hematuria, No Retention, No Other Musculoskeletal: No other, No neck pain, No shoulder pain, No arm pain, No back pain, No hand pain, No leg pain, No foot pain Skin: No Rash, No Lesions, No Jaundice, No Bruising, No Other Objective Vitals Vital Signs Date Time Temp Pulse Resp B/P (MAP) Pulse Ox O2 Delivery O2 Flow Rate FiO2 07/18/25 21:00 97.7 60 17 165/80 (108) 95 97.7 07/18/25 20:00 Nasal Cannula* 3 32 Intake/Output Intake and Output 07/18/25 07:00 Intake Total 1160 ml Balance 1160 ml Intake Oral 1160 ml # Voids 2 # Bowel Movements 3 General Appearance: Alert, Oriented X3, Cooperative, No acute distress HEENT: Atraumatic, PERRLA, EOMI, Mucous membr. moist/pink Neck: Supple Lungs: Clear to auscultation, Normal air movement Cardiovascular: Regular rate, Normal S1, Normal S2, No murmurs, Gallops, Rubs Abdomen: Normal bowel sounds, Soft Neuro: Cranial nerves 3-12 NL Psych/Mental Status: Mental status NL Medications Current Medications Medications Dose Ordered Sig/Sergio Route Start Time Stop Time Status Last Admin Dose Admin Acetaminophen/ Hydrocodone Bitart 1 tab Q4HP PRN PO 07/17/25 14:30 07/18/25 16:38 1 TAB Ondansetron HCl 4 mg Q4HP PRN IV 07/17/25 14:30 Docusate Sodium 100 mg BIDPRN PRN PO 07/17/25 14:30 Acetaminophen 650 mg Q6HP PRN PO 07/17/25 14:30 Nitroglycerin 0.4 mg Q5MINP PRN SL 07/17/25 14:30 Morphine Sulfate 2 mg Q30M PRN IV 07/17/25 14:30 Lisinopril 40 mg DAILY PO 07/18/25 10:00 07/18/25 10:25 40 MG Metoprolol Succinate 50 mg DAILY PO 07/18/25 10:00 07/18/25 10:25 50 MG Tramadol HCl 50 mg BID PO 07/17/25 22:00 07/18/25 21:41 50 MG Patient Own Medication 1 tab DAILY PO 07/18/25 10:00 Patient Own Medication 1 tab QWEEKLY PO 07/17/25 18:00 UNV Pregabalin 25 mg BID PO 07/17/25 22:00 07/18/25 21:40 25 MG Trimethoprim/ Sulfamethoxazole 1 tab MWF PO 07/19/25 10:00 Atorvastatin Calcium 10 mg HS PO 07/17/25 22:00 07/18/25 21:39 10 MG Baclofen 10 mg BID PRN PO 07/17/25 18:00 Enoxaparin Sodium 90 mg Q12HR SC 07/17/25 22:00 07/18/25 21:41 90 MG Amiodarone HCl 200 mg BID PO 07/17/25 22:00 07/18/25 21:39 200 MG Hydralazine HCl 10 mg Q6HP PRN IV 07/18/25 01:00 07/18/25 12:55 10 MG Amlodipine Besylate 5 mg DAILY PO 07/19/25 10:00 Patient Own Medication 1 tab QWEEKLY PO 07/19/25 06:00 Laboratory Results Laboratory Tests 07/18/25 06:08 Chemistry Test 07/18/25 06:08 Albumin 4.0 g/dL (3.2-4.8) Calcium Level 9.1 mg/dL (8.7-10.4) Total Protein 6.8 g/dL (5.7-8.2) LFT Test 07/18/25 06:08 Alanine Aminotransferase (ALT) 13 U/L (7-40) Alkaline Phosphatase 83 U/L (46-116) Aspartate Amino Transferase (AST) 15 U/L (13-40) Total Bilirubin 0.5 mg/dL (0.2-1.0) Urinalysis Test 07/17/25 10:38 Urine Color Straw (Yellow) Urine Clarity Clear (Clear) Urine pH 6.5 (5.0-9.0) Urine Specific [place] 1.003 (1.001-1.035) Urine Protein Negative (Negative) Urine Ketones Negative (Negative) Urine Blood Negative /uL (Negative) Urine Nitrite Negative (Negative) Urine Bilirubin Negative (Negative) Urine Urobilinogen Normal mg/dL (Negative) Urine Leukocyte Esterase Negative /uL (Negative) Urine RBC <1 /hpf (0 - 4) Urine Microscopic WBC 1 /HPF (0-5) Urine Squamous Epithelial Cells Few /hpf (<5) Urine Bacteria Mod /hpf (None Seen) H Urine Glucose Normal mg/dL (Normal) Labs and/or images reviewed: Labs reviewed by me Assessment/Plan Assessment/Plan New onset atrial fibrillation with RVR, Asthma, Hypertension, HIV, Osteoporosis, Continuing current management Appreciate cardiology input Discharge planning Started Eliquis Continuing with metoprolol This medical document was created using an electronic medical record system with [employer] direct computerized dictation system. Although this document has been carefully reviewed, there may still be some phonetic and typographical errors. These areas are purely typographical due to imperfections of the software programs, and do not reflect any compromise in the patient's medical care. Plan discussed with: Patient Date of Service: Jul 18, 2025 Billing Provider: TERRY ARIAS MD Common Visit Codes: [id number] INP/OBS CARE(HIGH) TERRY ARIAS MD Jul 18, 2025 23:42
[2025-07-19 01:00] VITALS: BP 147/92; PULSE 68; RESP 16; TEMP 98.1; O2SAT 93
[2025-07-19] MEDS ORDERED: ALENDRONATE SODIUM 70 MG PO SCH (06:00)
[2025-07-19 08:00] VITALS: PULSE 57; RESP 18
[2025-07-19 09:00] VITALS: BP 102/64; PULSE 65; RESP 18; TEMP 98.4; O2SAT 100
[2025-07-19] MEDS: SULFAMETHOX W/TRIMETH(800/160MG) DS TAB PO SCH (10:57)
[2025-07-19] MEDS ORDERED: APIX5TAB PO (12:11)
--- NOTE | 2025-07-19 12:11 | DVHDS2 ---
Discharge Summary Date of Admission Jul 17, 2025 at 14:20 Date of Discharge: Jul 19, 2025 Admitting Diagnosis New onset atrial fibrillation with RVR, Asthma, Hypertension, HIV, Osteoporosis, Labs/Diagnostic Data: Laboratory Results Test 07/18/25 06:08 07/17/25 10:38 07/17/25 09:10 White Blood Count 6.9 10^3/uL (4.4-10.8) Red Blood Count 4.16 10^6/uL (4.0-5.20) Hemoglobin 13.3 g/dL (12.2-16.2) Hematocrit 39.3 % (36.0-46.0) Mean Corpuscular Volume 94.6 fL (80.0-100.0) Mean Corpuscular Hemoglobin 31.9 pg (28.0-32.0) Mean Corpuscular Hemoglobin Concent 33.7 g/dL (32.0-36.0) Red Cell Distribution Width 13.7 % (11.8-14.3) Platelet Count 264 10^3/uL (140-450) Mean Platelet Volume 8.9 fL (6.9-10.8) Neutrophils (%) (Auto) 70.0 % (37.0-80.0) Lymphocytes (%) (Auto) 17.6 % (10.0-50.0) Monocytes (%) (Auto) 9.6 % (0.0-12.0) Eosinophils (%) (Auto) 2.1 % (0.0-7.0) Basophils (%) (Auto) 0.7 % (0.0-2.0) Neutrophils # (Auto) 4.8 10 ^3/uL (1.6-8.6) Lymphocytes # (Auto) 1.2 10 ^3/uL (0.4-5.4) Monocytes # (Auto) 0.7 10 ^3/uL (0-1.3) Eosinophils # (Auto) 0.1 10 ^3/uL (0-0.8) Basophils # (Auto) 0.1 10 ^3/uL (0-0.2) Nucleated Red Blood Cells 0.0 % Sodium Level 144 mmol/L (136-145) Potassium Level 3.9 mmol/L (3.5-5.1) Chloride Level 108 mmol/L (98-107) Carbon Dioxide Level 31 mmol/L (20-31) Anion Gap 5 (5-15) Blood Urea Nitrogen 8 mg/dL (9-23) Creatinine 0.64 mg/dL (0.550-1.02) Glomerular Filtration Rate Calc 94 mL/min (>90) BUN/Creatinine Ratio 12.5 (10.0-20.0) Serum Glucose 120 mg/dL (74-106) Calcium Level 9.1 mg/dL (8.7-10.4) Total Bilirubin 0.5 mg/dL (0.2-1.0) Aspartate Amino Transferase (AST) 15 U/L (13-40) Alanine Aminotransferase (ALT) 13 U/L (7-40) Alkaline Phosphatase 83 U/L (46-116) Troponin I High Sensitivity 31 ng/L (</=34) Total Protein 6.8 g/dL (5.7-8.2) Albumin 4.0 g/dL (3.2-4.8) Urine Color Straw (Yellow) Urine Clarity Clear (Clear) Urine pH 6.5 (5.0-9.0) Urine Specific [place] 1.003 (1.001-1.035) Urine Protein Negative (Negative) Urine Ketones Negative (Negative) Urine Blood Negative /uL (Negative) Urine Nitrite Negative (Negative) Urine Bilirubin Negative (Negative) Urine Urobilinogen Normal mg/dL (Negative) Urine Leukocyte Esterase Negative /uL (Negative) Urine RBC <1 /hpf (0 - 4) Urine Microscopic WBC 1 /HPF (0-5) Urine Squamous Epithelial Cells Few /hpf (<5) Urine Bacteria Mod /hpf (None Seen) Urine Glucose Normal mg/dL (Normal) Hemoglobin A1c 5.7 % A1C (<5.7) B-Type Natriuretic Peptide 85.68 pg/mL (0-100) Triglycerides Level 131 mg/dL (< 150) Cholesterol Level 217 mg/dL (< 200) LDL Cholesterol 162 mg/dL (< 100) HDL Cholesterol 50 mg/dL (40-59) Thyroid Stimulating Hormone (TSH) 1.18 uIU/mL (0.55-4.78) Other Laboratory Tests 07/18/25 06:08 Brief Hx & Hospital Course: This is a 74 years old female with past medical history of asthma, hypertension, hypertension, osteoporosis, and sciatica came to emergency department because shortness for breath and heart palpitation. The patient states that she recently told that she will need an MRI of her back because of severe back pain. The patient had been having intermittent anxiety due to being afraid of the MRI. Patient also had an episode of shortness a breath and heart palpitation. The patient's wake up this morning gasping air, she become very nauseated and vomited so she decided to come to hospital for further evaluation. Also has chest discomfort and shortness for breath. In the emergency department the patient was found to have atrial fibrillation with RVR. The patient on metoprolol at home. The patient was not on any anticoagulation. The patient denied any known history of atrial fibrillation. Echo was done. It showed:SR,Aortic root enlargement. LVH.Valves are normal ,LV function is normal at 50% with normal RV function. Doppler is norlmal ,No masses or vegetations. Personal Care Aide see the patient. Recommend anticoagulation with Eliquis 5 mg p.o. b.i.d.. Continuing with metoprolol at home. Today her heart rate back to sinus rhythm. Blood pressure controlled after given hydralazine IV PRN. I am going to discharge her home. Advised her to follow up with primary care physician 1-2 weeks. Follow up with insulator cutter and former per schedule. Activity as tolerated. Diet per home diet. Recommend low-salt low-cholesterol diet. Physical exam : HEENT: Normocephalic atraumatic pupils equal react to light and accommodation. Extraocular muscles intact, conjunctiva pink, oropharynx moist, no thrush, no exudate. Lymphatic: No lymphadenopathy Cardiovascular exam: S1, S2 was heard. No murmurs, rubs, gallops Lung: Clear on auscultation bilaterally, no wheeze, rale, rhonchi. GI: Abdominal soft, nondistended, nontenderness, positive bowel sounds. Extremity: No crepitus, cyanosis, edema. Pedal pulses present bilateral. Full range of motion. Skin: Normal turgor, no rash. Psych: Alert, oriented x3. Neurology: No focal deficits, cranial nerve II to XII grossly intact. This medical document was created using an electronic medical record system with [employer] computerized dictation system. Although this document has been carefully reviewed, there may still be some phonetic and typographical errors. These areas are purely typographical due to imperfections of the software programs, and do not reflect any compromise in the patient's medical care. Condition at Discharge: Stable Final Diagnosis/Problems List New onset atrial fibrillation with RVR, Asthma, Hypertension, HIV, Osteoporosis, Discharge Disposition: Home Discharge Instruct/Medications Diet: Cardiac 2g Na,low cholest Activity: No Restrictions, As Tolerated Follow Up/Referral: pcp 1-2 weeks Personal Care Aide per schedule Medications: See med list Scheduled Jsfjqzcn-Qklqsddszcmq-Pijbmjmf (Triumeq 600-50-300 mg), 1 TAB PO DAILY, (Reported) Alendronate Sodium (Alendronate Sodium), 1 TAB PO QWEEKLY, (Reported) Apixaban Base (Eliquis), 5 MG PO BID Atorvastatin Calcium (Atorvastatin Calcium), 1 TAB PO HS, (Reported) Ergocalciferol (Vitamin D 33604 Unit), 50,000 UNIT PO QWEEKLY Lisinopril (Lisinopril), 40 MG PO DAILY Metoprolol Succinate (Metoprolol Succinate Er), 1 TAB PO DAILY, (Reported) Pregabalin (Pregabalin), 25 MG PO BID, (Reported) Sulfamethoxazole W/Trimethopri (Bactrim Ds Tablet), 1 TAB PO MWF, (Reported) Tramadol Hcl (Tramadol Hcl), 50 MG PO BID Scheduled PRN Acetaminophen (Tylenol), 325 MG PO Q4HPRN PRN Baclofen (Baclofen), 10 MG PO BID PRN, (Reported) Miscellaneous Medications [Atripla], (Reported) Discharge Statement: "Patient was advised to return to the ER or call 911 if any headaches, dizziness, shortness of breath, chest pain, abdominal pain, bleeding, fevers, or worsening of medical condition. Patient was counseled about treatment plan, medications, possible side effects, patientverbalized understanding. All questions were answered to the best of my ability. This discharge took greater then 30 minutes in planning, reviewing documentation, counseling the patient, and discussing with other team members." ASSESSMENT ASSESSMENT Assessment Afib Date of Service: Jul 19, 2025 Billing Provider: TERRY ARIAS MD Common Visit Codes: 91204-QRE/OBS DISCH DAY >30min TERRY ARIAS MD Jul 19, 2025 12:11
[2025-07-19 13:00] VITALS: BP 142/57; PULSE 64; RESP 16; TEMP 97.7; O2SAT 100
[2025-07-19 13:04] VITALS: PULSE 58
--- NOTE | 2025-07-21 11:25 | ECG ---
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
--- NOTE | 2025-07-21 11:26 | ECG ---
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
== END 2025-07-19 15:00 | disposition home or self-care (01) | DRG 310 ==
LOC: ER 08:47 → OVERFLOW 14:20 → TELE-WESTW 17:30
PROVIDERS: ADMIT Internal Medicine; ATTEND Internal Medicine
DX: I48.0 Paroxysmal atrial fibrillation (principal); J45.909 Unspecified asthma, uncomplicated; I10 Essential (primary) hypertension; F41.9 Anxiety disorder, unspecified; M81.0 Age-related osteoporosis without current pathological fracture; Z90.49 Acquired absence of other specified parts of digestive tract; Z90.710 Acquired absence of both cervix and uterus; Z98.51 Tubal ligation status; Z82.49 Family history of ischemic heart disease and other diseases of the circulatory system; Z83.3 Family history of diabetes mellitus; Z79.899 Other long term (current) drug therapy; Z79.01 Long term (current) use of anticoagulants
CPT/HCPCS: 36415; 71045; 80048; 80053; 80061; 81001; 83036; 83880; 84443; 84484; 85025; 93005; 93306; 96365; G0378